=== PATIENT | male | born 1980 | race Caucasian/White ===

== ENCOUNTER → 2016-12-11 | Outpatient (CLI) | payer OTHER ==
[2016-12-11 20:02] LABS: Basophils # (A) 0.1 k/uL (0-0.2); Basophils % (A) 1 %; CH 30.1; CHCM 33.7; Eosinophils # (A) 0.3 k/uL (0-0.7); Eosinophils % (A) 3 %; HCT 45.4 % (39.0-53.0); HDW 2.49; HGB 14.8 gm/dL (13.0-17.5); Luc # (Auto) 0.13; Luc % (Auto) 1; Lymphocytes # (A) 3.2 k/uL (1.0-4.8); Lymphocytes % (A) 31 %; MCH 29.2 pg (25.0-35.0); MCHC 32.6 g/dL (31.0-37.0); MCV 89.6 fL (80.0-100.0); Mean Platelet Volume 7.6; Monocytes # (A) 0.6 k/uL (0-1.0); Monocytes % (A) 5 %; Neutrophils % (A) 59 %; RBC 5.06 m/uL (4.30-5.90); RDW 13.2 % (11.5-15.5); WBC 10.3 k/uL (3.8-10.6); WBC (Perox) 10.41
[2016-12-11 20:10] LABS: ALT 62 U/L (21-72); AST 52 U/L (17-59); Alkaline Phosphatase 68 U/L (38-126); Anion Gap 13 mmol/L; Blood Urea Nitrogen 11 mg/dL (9-20); Calcium 9.7 mg/dL (8.4-10.2); Carbon Dioxide 26 mmol/L (22-30); Chloride 103 mmol/L (98-107); Cholesterol 217 mg/dL (<200); Glucose 82 mg/dL (74-99); HDL Cholesterol 37 mg/dL (40-60); Non-African American GFR(MDRD) >60 (>60 ml/min/1.73 sqM); Potassium 4.2 mmol/L (3.5-5.1); Sodium 142 mmol/L (137-145); Total Bilirubin 0.7 mg/dL (0.2-1.3); Total Protein 7.7 g/dL (6.3-8.2); Triglycerides 166 mg/dL (<150)
== END | disposition home or self-care (01) ==
LOC: MMGSC 16:46
PROVIDERS: ATTEND Family Medicine
DX: Z00.00 Encounter for general adult medical examination without abnormal findings (principal); E03.9 Hypothyroidism, unspecified
CPT/HCPCS: 36415; 80053; 80061; 84439; 84443; 85025

== ENCOUNTER → 2017-01-29 | Outpatient (CLI) | payer OTHER | END | disposition home or self-care (01) | LOC: MMGSC 16:41 | PROVIDERS: ATTEND Family Medicine | DX: E03.9 Hypothyroidism, unspecified (principal) | CPT/HCPCS: 36415; 84439; 84443 ==

== ENCOUNTER → 2017-06-09 | Outpatient (CLI) | payer OTHER | LOC: MMGSC 16:55 | PROVIDERS: ATTEND Family Medicine | DX: E03.9 Hypothyroidism, unspecified (principal) | CPT/HCPCS: 36415; 84439; 84443 ==

== ENCOUNTER → 2018-01-25 | Outpatient (CLI) | payer OTHER ==
[2018-01-25 18:52] LABS: T4, Free (Free Thyroxine) 0.27 ng/dL (0.78-2.19)
== END | disposition home or self-care (01) ==
LOC: MMGSC 16:07
PROVIDERS: ATTEND Family Medicine
DX: E03.9 Hypothyroidism, unspecified (principal)
CPT/HCPCS: 36415; 84439; 84443; 84480

== ENCOUNTER → 2019-03-16 | Outpatient (CLI) | payer OTHER ==
--- NOTE | 2019-03-16 16:29 | XR ---
EXAMINATION TYPE: XR orbit complete bilateral DATE OF EXAM: 03/16/2019 COMPARISON: None HISTORY: MRI clearance V90, M 25.699 TECHNIQUE: Orbits are examined in 3 projections. FINDINGS: No radiopaque foreign bodies are in or about the orbits to contraindicate MRI. Paranasal si nuses and sella appear unremarkable. IMPRESSION: 1. No suspicious radiopaque foreign bodies in or about the orbits.
--- NOTE | 2019-03-17 08:52 | MR ---
EXAMINATION TYPE: MR knee LT wo con DATE OF EXAM: 03/16/2019 COMPARISON: None HISTORY: Pain in left knee TECHNIQUE: Multiplanar, multisequence imaging of the left knee is performed without IV contrast. FINDINGS: MEDIAL MENISCUS: Some increased signal present at the posterior ankle root may represent strain, ther e is some intrasubstance signal without definitive tear LATERAL MENISCUS: Abnormal signal present within the anterior horn of the lateral meniscus medially l ikely a posttraumatic complex tear CRUCIATE LIGAMENTS: Some increased signal along the anterior cruciate ligament may represent strain o r partial tear, posterior cruciate ligament intact COLLATERAL LIGAMENTS: The medial collateral ligament and lateral collateral ligament complex are inta ct and unremarkable. EXTENSOR MECHANISM: Visualized quadriceps and patellar tendons are intact. EFFUSION: There is a joint effusion POPLITEAL CYST: Small semimembranosus gastrocnemius cyst TRICOMPARTMENT SPACES: Maintained CARTILAGE: Thinning of the articular cartilage noted in the medial compartment BONE MARROW SIGNAL: Somewhat diffuse abnormal increased signal within the proximal tibia metaphysis m ay represent posttraumatic geode formation or ganglion cyst, there is reactive marrow signal change a lso present within the proximal tibia anteriorly which may represent bone contusion OTHER: There is some marginal spurring. Prepatellar soft tissue swelling noted anterior to the samson lar tendon may be related to contusion IMPRESSION: Posttraumatic changes to the anterior horn of the lateral meniscus consistent with complex tear and l ikely the anterior cruciate ligament shows strain or partial tear, proximal tibia changes as describe d with joint effusion
== END | disposition home or self-care (01) ==
LOC: RADMRIMAIN 15:51
PROVIDERS: ATTEND Orthopaedic Surgery
DX: M25.462 Effusion, left knee (principal); M25.562 Pain in left knee
CPT/HCPCS: 70200

== ENCOUNTER → 2019-04-11 | Outpatient (CLI) | payer OTHER ==
[2019-04-11 17:31] LABS: ALT 37 U/L (10-49); AST 29 U/L (14-35); Alkaline Phosphatase 93 U/L (41-126); Bilirubin, Conjugated <0.20 mg/dL (0.20-0.40); Globulin 2.5 g/dL (1.6-3.3); Total Bilirubin 0.3 mg/dL (0.2-1.2)
== END | disposition home or self-care (01) ==
LOC: LABWHC1 09:52
PROVIDERS: ATTEND Family Medicine
DX: E03.9 Hypothyroidism, unspecified (principal); R94.5 Abnormal results of liver function studies
CPT/HCPCS: 36415; 80076; 84439; 84443

== ENCOUNTER → 2019-04-11 | Outpatient (CLI) | payer OTHER ==
[2019-04-11 10:21] LABS: Basophils # (A) 0.1 k/uL (0-0.2); Basophils % (A) 1 %; Eosinophils # (A) 0.3 k/uL (0-0.7); Eosinophils % (A) 3 %; HCT 46.7 % (39.0-53.0); HGB 14.8 gm/dL (13.0-17.5); Lymphocytes # (A) 1.7 k/uL (1.0-4.8); Lymphocytes % (A) 16 %; MCH 28.1 pg (25.0-35.0); MCHC 31.6 g/dL (31.0-37.0); MCV 88.9 fL (80.0-100.0); Mean Platelet Volume 6.3; Monocytes # (A) 0.7 k/uL (0-1.0); Monocytes % (A) 7 %; Neutrophils # (A) 7.9 k/uL (1.3-7.7); Neutrophils % (A) 73 %; Platelet Count 281 k/uL (150-450); RBC 5.26 m/uL (4.30-5.90); RDW 13.1 % (11.5-15.5); WBC 10.8 k/uL (3.8-10.6)
[2019-04-11 10:40] LABS: Potassium 4.3 mmol/L (3.5-5.1)
== END | disposition home or self-care (01) ==
LOC: LABPAT 09:46
PROVIDERS: ATTEND Orthopaedic Surgery
DX: Z01.812 Encounter for preprocedural laboratory examination (principal); M23.92 Unspecified internal derangement of left knee
CPT/HCPCS: 80051; 85025

== ENCOUNTER → 2019-04-29 | Day surgery (SDC) | payer OTHER ==
[2019-04-26 09:42] VITALS: BMI 29.9
--- NOTE | 2019-04-28 11:23 | HP ---
HISTORY AND PHYSICAL CHIEF COMPLAINT: Left knee pain. 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 He notes increasing swelling, pain with stairs, kneeling, and flexion. He notes intermittent giving way. He has tried medications in addition to an injection with only partial temporary relief. He notes it does limit him. PAST MEDICAL HISTORY: Significant for depression and hypothyroidism. PAST SURGICAL HISTORY: Significant for left knee ACL reconstruction. CURRENT MEDICATIONS: Xanax. HE NOTES ALLERGIES TO: PENICILLIN. FAMILY HISTORY: Negative. SOCIAL HISTORY: Significant for 1 pack per day tobacco use and social alcohol use. REVIEW OF SYSTEMS: A 16-point review of systems otherwise reviewed and is noncontributory. On examination, the patient is approximately 5 foot 11, 228 pounds of mesomorphic habitus. HEENT: Exam is nonfocal. NECK: Supple. He has painless passive motion of the left hip. Straight leg raise is negative. Active motion left knee -12 to 100 degrees of flexion. He has a large effusion. He is tender about the medial joint line. Collaterals are stable, Devin's is 1+, Landy's elicits medial and lateral pain. His distal neurovascular appears intact in the left lower extremity. MRI report for the left knee shows increased signal involving the posterior horn of the medial meniscus in addition to the anterior horn of the lateral meniscus. There is increased signal involving the ACL reconstruction. IMPRESSION: 1. Internal derangement left knee with lateral meniscal tear and possible medial meniscal tear, possible medial femoral condyle chondral injury. 2. History of left knee ACL reconstruction. We will likely pursue sprain. RECOMMENDATIONS: I talked to the patient at length regarding his condition and treatment options. At this point, he is quite symptomatic, having pain and mechanical symptoms and opts to proceed with surgery. We will plan to proceed with arthroscopic evaluation with possible partial lateral meniscectomy/medial femoral chondrectomy/and possible ACL debridement. We will likely perform that as an outpatient procedure. Risks and benefits were discussed at length in layman's terms. MMODL / IJN: [id number] /
[~2019-04-29] MED LIST: DEXAMETHASONE SOD PHOSPHATE 10 MG/ML 1 ML VIAL IV ONE; EPINEPHrine (PF) 1 ML in SODIUM CHLORIDE 0.9% IRRIGATIO 3,000 ML IRRIGATION ONE; HYDROmorphone 0.5 MG/0.5 ML SYRINGE IVP PRN; KETOROLAC 30 MG/ML 1 ML VIAL IVP SCH; LACTATED RINGERS 1,000 ML IV SCH; LIDOCAINE 1% 20 ML VIAL (10MG/ML) FOR IV START INTRADERMA PRN; LIDOCAINE 1% INJ 10MG/ML (20 ML MDV) ONE; MEPERIDINE 50 MG/ML SYRINGE IVP ONE; METOCLOPRAMIDE 5 MG/ML 2 ML VIAL IVP PRN; MIDAZOLAM 2 MG/2 ML VIAL ONE; ONDANSETRON 4 MG/2 ML VIAL IVP ONE; ONDANSETRON 4 MG/2 ML VIAL IVP PRN; PROPOFOL 10 MG/ML 20 ML VIAL IV ONE; ceFAZolin IN SWFI 2 GM/20 ML SYRINGE IVP ONE; fentaNYL (PF) 50 MCG/ML 2 ML AMP ONE
[2019-04-29 08:55] VITALS: RESP 16; TEMP 98
[2019-04-29] MEDS: MEPERIDINE 50 MG/ML SYRINGE IVP ONE ×2 (08:59→09:14)
--- NOTE | 2019-04-29 09:07 | P.OP ---
Date of Procedure: 04/29/19 Preoperative Diagnosis: Left knee internal derangement Postoperative Diagnosis: Left knee anterior lateral meniscal tear/reactive synovitis/loose body Procedure(s) Performed: Left knee arthroscopic partial lateral meniscectomy/synovectomy of the medial, lateral, and patellofemoral compartments/loose body removal 1 x 1 cm Anesthesia: LOPEZ Surgeon: Ponce Stevens Estimated Blood Loss (ml): 10 Pathology: none sent Condition: stable Disposition: PACU Indications for Procedure: The patient's a 39-year-old male who presents with progressive left knee pain and mechanical symptoms despite conservative measures. He has a history of previous ACL reconstruction. A discussion of the risks and benefits of operative intervention versus continued conservative measures was made with the patient. He opted to proceed with surgery. Operative risks to include infection, neurovascular injury, development blood clots, possible incomplete resolution of symptoms, possible worsening symptoms and need for subsequent procedures was discussed. Informed consent was obtained. Operative Findings: As below Description of Procedure: The patient was brought to the operating room, and after induction of general anesthesia examined the left knee. Collaterals were stable, Devin was negative, and posterior drawer was negative. The left lower extremity was prepped and draped in a normal fashion. A superior lateral portal was made through a 3 mm skin incision superior and lateral to the patella. This was used for outflow. A lateral portal was made through a 5 mm vertical skin incision lateral to the patella tendon above the joint line. Diagnostic arthroscopy was performed. On inspection of the medial compartment, the posterior horn appeared to be intact. Significant reactive synovitis involving the anterior medial co mpartment was noted and was debrided with a motorized shaver.. On inspection of the notch, the anterior cruciate ligament graft grossly appeared to be intact. On inspection of the lateral compartment, a complex tear involving the anterior horn of the lateral meniscus in the white/red junction was noted. This was debrided back to stable base with a motorized shaver. A 1 x 1 cm bony loose body was noted in the anterolateral compartment. This was removed with a grasper. Significant reactive synovitis was also debrided with a motorized shaver in the anterolateral compartment.. On inspection of the patellofemoral articulation there was reactive synovitis debrided with a motorized shaver. The gutters were clear debris. The knee was then thoroughly irrigated. The portals were closed with Steri-Strips. A sterile dressing was applied in addition to a compression stocking. The patient was awoken from general anesthesia and transferred to recovery room in good condition. Blood loss was estimated at 10 mL. No complications were incurred.
[2019-04-29 09:49] VITALS: BP 143/84; PULSE 68
== END | disposition home or self-care (01) ==
LOC: OR 06:27
PROVIDERS: ATTEND Orthopaedic Surgery
DX: S83.282A Other tear of lateral meniscus, current injury, left knee, initial encounter (principal); X58.XXXA Exposure to other specified factors, initial encounter; M65.862 Other synovitis and tenosynovitis, left lower leg; E03.9 Hypothyroidism, unspecified; F32.9 Major depressive disorder, single episode, unspecified; Z87.891 Personal history of nicotine dependence; Z79.890 Hormone replacement therapy; Z79.899 Other long term (current) drug therapy; Z88.0 Allergy status to penicillin
CPT/HCPCS: 29881; 29876; J2250; J1100; J2175; J2405; J0171; J2001; J3010; J2704; J0690

== ENCOUNTER → 2019-09-21 | Day surgery (SDC) | payer OTHER ==
[2019-09-20 09:05] VITALS: BMI 32.1
[~2019-09-21] MED LIST changes: -EPINEPHrine (PF) 1 ML in SODIUM CHLORIDE 0.9% IRRIGATIO 3,000 ML IRRIGATION ONE; -HYDROmorphone 0.5 MG/0.5 ML SYRINGE IVP PRN; -KETOROLAC 30 MG/ML 1 ML VIAL IVP SCH; +KETOROLAC 30 MG/ML 1 ML VIAL ONE; -MEPERIDINE 50 MG/ML SYRINGE IVP ONE; -METOCLOPRAMIDE 5 MG/ML 2 ML VIAL IVP PRN; -ONDANSETRON 4 MG/2 ML VIAL IVP PRN; +SCOPOLAMINE 1.5MG/72HR PATCH TRANSDERM ONE; -ceFAZolin IN SWFI 2 GM/20 ML SYRINGE IVP ONE
--- NOTE | 2019-09-21 09:21 | HP ---
HISTORY AND PHYSICAL CHIEF COMPLAINT: Left knee pain. 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 He has tried medications in addition to a cortisone injection and lubrication injection. He notes persistent swelling and stiffness. He denies fevers or chills. PAST MEDICAL HISTORY: Significant for depression and hypothyroidism. PAST SURGICAL HISTORY: Significant for previous left knee ACL reconstruction and subsequent left knee arthroscopy. CURRENT MEDICATIONS: 1. Medrol dose pack. 2. [place]. 3. Xanax. He has allergies to PENICILLIN. FAMILY HISTORY: Negative. SOCIAL HISTORY: Significant for 1 pack per day tobacco use and daily alcohol use. 16 POINT REVIEW OF SYSTEMS: Otherwise reviewed and is negative for fevers or chills or other joint complaints. PHYSICAL EXAMINATION: On examination, the patient is approximately 5 foot 11, 228 pounds of endomorphic habitus. HEENT exam is nonfocal. Neck is supple. He has painless passive motion of his left hip. Straight leg raise is negative. Active motion left knee -12 to 105 degrees of flexion. He has a moderate effusion. There is no increased warmth or erythema. He is tender about the medial joint line. Collaterals are stable, Devin is negative, Landy's is equivocal. His distal neurovascular appears intact in the left lower extremity. Previous synovial fluid results for the left knee show 35,900 PMNs with no crystals. Serum uric acid was 7.5, C-reactive protein 2.2, and sedimentation rate was 33. IMPRESSION: 1. Left knee internal derangement/synovitis, possibly secondary to inflammatory arthritis versus infectious etiology. 2. Previous left knee arthroscopy with lateral compartment osteoarthrosis. RECOMMENDATIONS: I talked to the patient at length regarding his condition along with treatment options. At this point, he remains quite symptomatic despite conservative measures and opts to proceed with surgery. We will plan to proceed with arthroscopic lavage of the left knee at which point we will obtain Gram stain and cultures, along with repeat cell count. We will likely start the patient prophylactically after this on oral Keflex until culture results are available. MMODL / IJN: [id number] /
[2019-09-21 12:44] LABS: Glucose,Whole Blood 83 mg/dL (75-99)
[2019-09-21] MEDS: HYDROmorphone 0.5 MG/0.5 ML SYRINGE IVP PRN ×4 (14:19→14:37)
--- NOTE | 2019-09-21 14:21 | P.OP ---
Date of Procedure: 09/21/19 Preoperative Diagnosis: Left knee synovitis/effusion Postoperative Diagnosis: Same Procedure(s) Performed: Left knee arthroscopic lavage/synovectomy of the medial, lateral, and patellofemoral compartments Anesthesia: LOPEZ Surgeon: Ponce Stevens Estimated Blood Loss (ml): 10 Pathology: other (Gram stain, culture, cell count, fluid for crystals) Condition: stable Disposition: PACU Indications for Procedure: The patient's a 39-year-old male who presents with a several week history of increasing pain, swelling, and warmth in his left knee. He previously had undergone arthroscopy approximately 3-4 months ago. Previous aspiration showed significant inflammatory cells in his knee. A discussion of the risks and benefits of operative intervention was made with patient. He opted to proceed. Specific risks to include infection, neurovascular injury, and possible need for subsequent procedures was discussed. Informed consent was obtained. Operative Findings: As below Description of Procedure: The patient was brought to the operating room, and after induction of general anesthesia examined the left knee. Collaterals were stable, Devin was negative, and posterior drawer was negative. The left lower extremity was prepped and draped in a normal fashion. A superior lateral portal was made through a 3 mm skin incision superior and lateral to the patella. This was used for outflow. A moderate effusion was encountered. This fluid was sent for cell count, crystals, and Gram stain with culture. A lateral portal was made through a 5 mm vertical skin incision lateral to the patella tendon above the joint line. Diagnostic arthroscopy was performed. On inspection of the medial compartment, there was significant synovitis that was debrided with a motorized shaver. There were some loose chondral fragments floating in the joint space that was debrided with a motorized shaver. The medial meniscus was stable and intact. On inspection of the notch, the anterior cruciate ligament graft appeared to be intact. On inspection of the lateral compartment, there was significant synovitis debrided with a motorized shaver. The lateral meniscus was stable and intact. Grade 2-3 chondral changes were noted diffusely in the lateral compartment.. On inspection of the patellofemoral articulation, there was significant synovitis debrided with a motorized shaver. The articular surface appeared intact. The gutters were clear debris. The knee was then thoroughly irrigated with 11 L of fluid. The portals were closed with Steri- Strips. A sterile dressing was applied in addition to a compression stocking. The patient was awoken from general anesthesia and transferred to recovery room in good condition. Blood loss was estimated at 10 mL. No complications were incurred.
[2019-09-21 14:29] VITALS: TEMP 97
[2019-09-21 14:38] LABS: Color,BF Red
[2019-09-21 14:39] LABS: Appearance,BF Bloody; Nucleated Cells, Body Fluid 8000 /uL; RBC, Body Fluid 565500 /uL
[2019-09-21 14:44] LABS: Mononuclear WBC,Body Fluid 22 %; Polynuclear WBC,Body Fluid 78 %; Total Cells Counted,Body Fluid 100
[2019-09-21 15:03] VITALS: PULSE 69
[2019-09-21 15:23] VITALS: BP 134/85; RESP 18
== END | disposition home or self-care (01) ==
LOC: OR 11:26
PROVIDERS: ATTEND Orthopaedic Surgery
DX: M65.862 Other synovitis and tenosynovitis, left lower leg (principal); M17.12 Unilateral primary osteoarthritis, left knee; E03.9 Hypothyroidism, unspecified; F32.9 Major depressive disorder, single episode, unspecified; F17.210 Nicotine dependence, cigarettes, uncomplicated; Z88.0 Allergy status to penicillin; Z79.890 Hormone replacement therapy; Z79.899 Other long term (current) drug therapy; Z98.890 Other specified postprocedural states
CPT/HCPCS: 89060; 89050; 87070 ×2; 87205 ×2; 87075 ×2; 29876; J2250; J1100; J0690; J2405; J2001; J3010; J1885; J2704; J1170

== ENCOUNTER 2024-01-12 18:39 | Inpatient (IN) | payer BC, OTHER ==
--- NOTE | 2024-01-12 18:46 | ED ---
Extremity Problem HPI - General Source: patient, RN notes reviewed Mode of arrival: wheelchair Limitations: physical limitation <Bekah Alva - Last Filed: 01/12/24 18:45> - History of Present Illness MD Complaint: other (Ataxia) -: week(s) Radiation: none Severity scale (1-10): 6 Consistency: constant Improves with: nothing, immobilization Worsens with: weight bearing, walking Associated Symptoms: denies other symptoms <Suman Contreras - Last Filed: 01/17/24 20:46> - General Stated complaint: Back Pain Time Seen by Provider: 01/12/24 18:45 - History of Present Illness Initial comments: Patient is a 43-year-old male presenting to the ER with a chief complaint of bilateral leg pain. He states has been a ongoing problem for which he is undergoing outpatient testing. He states today he started to have leg "convulsions ". He states there is a tingling sensation in his bilateral legs. Denies any injury. Does have a history of back pain. Denies any fevers, history of IV drug use, saddle paresthesias, urinary or bowel incontinence. (Bekah Alva) This 43-year-old male to ER for evaluation of weakness leg pain difficulty with ambulation and shaking of his legs uncontrolled convulsions of his legs with spasm and difficulty with walking and ataxia. Symptoms for a few weeks now, patient has had prior history of arthritis and joint pain which was a couple years ago but no other significant symptoms and no numbness back pain, no fever. Patient does have headaches and did have a headache today (Suman Contreras) - Related Data Home Medications Medication Instructions Recorded Confirmed Thyroid,Pork [[place] Thyroid] 120 mg PO DAILY 04/26/19 01/13/24 ALPRAZolam [Xanax] 0.5 mg PO DAILY PRN 09/20/19 01/13/24 Levothyroxine Sodium [Synthroid] 25 mcg PO DAILY 01/13/24 01/13/24 Meloxicam [Mobic] 15 mg PO DAILY 01/13/24 01/13/24 Allergies Allergy/AdvReac Type Severity Reaction Status Date / Time Penicillins Allergy Rash/Hives Verified 01/13/24 07:40 Review of Systems ROS Other: All systems not noted in ROS Statement are negative. <Bekah Alva - Last Filed: 01/12/24 18:45> ROS Other: All systems not noted in ROS Statement are negative. <Suman Contreras - Last Filed: 01/17/24 20:46> ROS Statement: Those systems with pertinent positive or pertinent negative responses have been documented in the HPI. Past Medical History Past Medical History: Osteoarthritis (OA), Thyroid Disorder History of Any Multi-Drug Resistant Organisms: None Reported Past Surgical History: Orthopedic Surgery Additional Past Surgical History / Comment(s): REPAIR ACL LT KNEE Past Anesthesia/Blood Transfusion Reactions: No Reported Reaction Past Psychological History: Depression Past Alcohol Use History: Occasional Additional Past Alcohol Use History / Comment(s): QUIT SMOKING 04/10 Past Drug Use History: None Reported - Past Family History Mother Family Medical History: No Reported History <GunnertimiBekah - Last Filed: 01/12/24 18:45> General Exam <GunnertimiBekah - Last Filed: 01/12/24 18:45> General appearance: alert, in no apparent distress Head exam: Present: atraumatic, normocephalic, normal inspection Eye exam: Present: normal appearance, PERRL, EOMI. Absent: scleral icterus, conjunctival injection, periorbital swelling ENT exam: Present: normal exam, mucous membranes moist Neck exam: Present: normal inspection. Absent: tenderness, meningismus, lymphadenopathy Respiratory exam: Present: normal lung sounds bilaterally. Absent: respiratory distress, wheezes, rales, rhonchi, stridor Cardiovascular Exam: Present: regular rate, normal rhythm, normal heart sounds. Absent: systolic murmur, diastolic murmur, rubs, gallop, clicks GI/Abdominal exam: Present: soft, normal bowel sounds. Absent: distended, tenderness, guarding, rebound, rigid Extremities exam: Present: normal inspection, full ROM, normal capillary refill. Absent: tenderness, pedal edema, joint swelling, calf tenderness Back exam: Present: normal inspection Neurological exam: Present: alert, oriented X3, CN II-XII intact Psychiatric exam: Present: normal affect, normal mood Skin exam: Present: warm, dry, intact, normal color. Absent: rash <Suman Contreras - Last Filed: 01/17/24 20:46> - General Exam Comments Initial Comments: Visual Physical Exam Vital signs reviewed General: Well-appearing, nontoxic, no acute distress. Head: Normocephalic, atraumatic Eyes: PERRLA, EOMI ENT: Airway patent Chest: Nonlabored breathing Skin: No visual rash, normal skin tone Neuro: Alert and oriented 3 Musculoskeletal: No gross abnormalities (Bekah Alva) Course <Suman Contreras - Last Filed: 01/17/24 20:46> Vital Signs 01/12/24 01/12/24 01/12/24 18:43 21:05 23:33 Temperature 98.3 F 98.2 F 97.7 F Pulse Rate 88 60 62 Respiratory 16 18 17 Rate Blood Pressure 169/97 123/81 125/76 O2 Sat by Pulse 100 98 95 Oximetry 01/13/24 01/13/24 01/13/24 04:24 09:33 12:00 Temperature 97.7 F 98.3 F Pulse Rate 63 67 79 Respiratory 16 18 18 Rate Blood Pressure 123/73 122/79 118/85 O2 Sat by Pulse 97 99 98 Oximetry 01/13/24 01/13/24 16:00 20:00 Temperature Pulse Rate 85 76 Respiratory 18 16 Rate Blood Pressure 125/79 115/76 O2 Sat by Pulse 99 99 Oximetry - Reevaluation(s) Reevaluation #1: 01/13/24 01:08 Medical records reviewed (Suman Contreras) Reevaluation #2: 01/13/24 01:08 Patient symptoms unchanged (Suman Contreras) Reevaluation #3: 01/13/24 01:08 Patient informed of results and questions answered (Suman Contreras) Reevaluation #4: Was pt. sent in by a medical professional or institution (, PA, GEOCHEMIST, urgent care, hospital, or [facility]...) When possible be specific @ -no Did you speak to anyone other than the patient for history (EMS, parent, family, police, friend...)? What history was obtained from this source @ -no Did you review nursing and triage notes (agree or disagree)? Why? @ -agree Are old charts reviewed (outside hosp., previous admission, EMS record, old EKG, old radiological studies, urgent care reports/EKG's, [facility] records)? Report findings @ -yes Differential Diagnosis (chest pain, altered mental status, abdominal pain women, abdominal pain men, vaginal bleeding, weakness, fever, dyspnea, syncope, headache, dizziness, GI bleed, back pain, seizure, CVA, palpatations, mental health, musculoskeletal)? @ -prior EKG interpreted by me (3pts min.). @ -no X-rays interpreted by me (1pt min.). @ -no CT interpreted by me (1pt min.). @ -yes negative for acute disease U/S interpreted by me (1pt. min.). @ -no What testing was considered but not performed or refused? (CT, X-rays, U/S, labs)? Why? @ -none What meds were considered but not given or refused? Why? @ -none Did you discuss the management of the patient with other professionals (professionals i.e. , PA, GEOCHEMIST, lab, RT, psych nurse, adoption social worker, carpet sewer, teacher, chief quality officer, home health care case manager)? Give summary @ -no Was smoking cessation discussed for >3mins.? @ -no Was critical care preformed (if so, how long)? @ -no Were there social determinants of health that impacted care today? How? (Homelessness, low income, unemployed, alcoholism, drug addiction, transportation, low edu. Level, literacy, decrease access to med. care, residential, rehab)? @ -none Was there de-escalation of care discussed even if they declined (Discuss DNR or withdrawal of care, Hospice)? DNR status @ -no What co-morbidities impacted this encounter? (DM, HTN, Smoking, COPD, CAD, Cancer, CVA, ARF, Chemo, Hep., AIDS, mental health diagnosis, sleep apnea, morbid obesity)? @ -none Was patient admitted / discharged? Hospital course, mention meds given and route, prescriptions, significant lab abnormalities, going to OR and other pertinent info. @ - 43 male to ER for evaluation patient will be admitted for ataxia, difficulty with ambulation and see neurology Admitted Undiagnosed new problem with uncertain prognosis? @ -no Drug Therapy requiring intensive monitoring for toxicity (Heparin, Nitro, Insulin, Cardizem)? @ -no Were any procedures done? @ -no Diagnosis/symptom? @ -Bilateral lower extremity weakness and ataxia Acute, or Chronic, or Acute on Chronic? @ -Acute Uncomplicated (without systemic symptoms) or Complicated (systemic symptoms)? @ -Complicated Side effects of treatment? @ -no Exacerbation, Progression, or Severe Exacerbation? @ -exacerbation Poses a threat to life or bodily function? How? (Chest pain, [place], [place], pneumonia, PE, COPD, DKA, ARF, appy, cholecystitis, CVA, Diverticulitis, Homicidal, Suicidal, threat to staff... and all critical care pts) @ -yes with significant neurological findings (Suman Contreras) Reevaluation #5: Differential Weakness: Hypoglycemia, shock, sepsis, hyponatremia, anemia, infection, [place], ETOH, adverse medicine reaction, overdose, stroke, this is not meant to be an all-inclusive list. (Suman Contreras) - Consultations Consultation #1: Spoke with sound physicians who agreed to admit this patient (Suman Contreras) Medical Decision Making <Bekah Alva - Last Filed: 01/12/24 18:45> - Lab Data Result diagrams: 01/17/24 06:24 01/17/24 06:24 - EKG Data -: EKG Interpreted by Me (EKG is sinus bradycardia 53 WI 183 QRS 93 QTc 428) - Radiology Data Radiology results: report reviewed (CT brain and CT lumbar spine are negative for acute disease), image reviewed <Suman Contreras - Last Filed: 01/17/24 20:46> - Medical Decision Making I performed the quick note portion of this chart. Electronically signed by Bekah Alva PA-C (Bekah Alva) 3 male to ER for evaluation patient will be admitted for ataxia, difficulty with ambulation and see neurology (Suman Contreras) - Lab Data Lab Results 01/12/24 01/12/24 01/12/24 Range/Units 18:57 18:57 22:45 WBC 9.4 (3.8-10.6) k/uL RBC 4.90 (4.30-5.90) m/uL Hgb 13.9 (13.0-17.5) gm/dL Hct 41.8 (39.0-53.0) % MCV 85.3 (80.0-100.0) fL MCH 28.4 (25.0-35.0) pg MCHC 33.3 (31.0-37.0) g/dL RDW 13.2 (11.5-15.5) % Plt Count 278 (150-450) k/uL MPV 6.7 ESR (0-15) mm/Hr Sodium 137 (137-145) mmol/L Potassium 4.4 (3.5-5.1) mmol/L Chloride 104 (98-107) mmol/L Carbon Dioxide 26 (22-30) mmol/L Anion Gap 7 mmol/L BUN 18 (9-20) mg/dL Creatinine 0.71 (0.66-1.25) mg/dL Est GFR (CKD-EPI)AfAm >90 (>60 ml/min/1.73 sqM) Est GFR (CKD-EPI)NonAf >90 (>60 ml/min/1.73 sqM) Glucose 114 H (74-99) mg/dL Plasma Lactic Acid [place] 0.8 (0.7-2.0) mmol/L Calcium 9.0 (8.4-10.2) mg/dL Phosphorus (2.5-4.5) mg/dL Magnesium 2.2 (1.6-2.3) mg/dL Total Bilirubin 0.6 (0.2-1.3) mg/dL AST 47 (17-59) U/L ALT 29 (4-49) U/L Alkaline Phosphatase 82 (38-126) U/L Creatine Kinase (55-170) U/L Troponin I (0.000-0.034) ng/mL C-Reactive Protein (0.00-0.80) mg/dL Total Protein 8.0 (6.3-8.2) g/dL Albumin 4.3 (3.5-5.0) g/dL Vitamin B12 (200.0-944.0) pg/mL RBC Folate (280 - 791) ng/mL TSH (0.465-4.680) mIU/L Lyme Screen IgG & IgM (Negative) Lyme Disease IgG/IgM 01/12/24 01/12/24 01/13/24 Range/Units 22:45 22:45 01:50 WBC (3.8-10.6) k/uL RBC (4.30-5.90) m/uL Hgb (13.0-17.5) gm/dL Hct (39.0-53.0) % MCV (80.0-100.0) fL MCH (25.0-35.0) pg MCHC (31.0-37.0) g/dL RDW (11.5-15.5) % Plt Count (150-450) k/uL MPV ESR (0-15) mm/Hr Sodium (137-145) mmol/L Potassium (3.5-5.1) mmol/L Chloride (98-107) mmol/L Carbon Dioxide (22-30) mmol/L Anion Gap mmol/L BUN (9-20) mg/dL Creatinine (0.66-1.25) mg/dL Est GFR (CKD-EPI)AfAm (>60 ml/min/1.73 sqM) Est GFR (CKD-EPI)NonAf (>60 ml/min/1.73 sqM) Glucose (74-99) mg/dL Plasma Lactic Acid [place] (0.7-2.0) mmol/L Calcium (8.4-10.2) mg/dL Phosphorus 4.7 H (2.5-4.5) mg/dL Magnesium 2.3 (1.6-2.3) mg/dL Total Bilirubin (0.2-1.3) mg/dL AST (17-59) U/L ALT (4-49) U/L Alkaline Phosphatase (38-126) U/L Creatine Kinase 123 (55-170) U/L Troponin I <0.012 (0.000-0.034) ng/mL C-Reactive Protein (0.00-0.80) mg/dL Total Protein (6.3-8.2) g/dL Albumin (3.5-5.0) g/dL Vitamin B12 592.0 (200.0-944.0) pg/mL RBC Folate (280 - 791) ng/mL TSH 0.305 L (0.465-4.680) mIU/L Lyme Screen IgG & IgM (Negative) Lyme Disease IgG/IgM 01/13/24 01/13/24 01/13/24 Range/Units 12:05 12:05 12:05 WBC (3.8-10.6) k/uL RBC (4.30-5.90) m/uL Hgb (13.0-17.5) gm/dL Hct (39.0-53.0) % MCV (80.0-100.0) fL MCH (25.0-35.0) pg MCHC (31.0-37.0) g/dL RDW (11.5-15.5) % Plt Count (150-450) k/uL MPV ESR 36 H (0-15) mm/Hr Sodium (137-145) mmol/L Potassium (3.5-5.1) mmol/L Chloride (98-107) mmol/L Carbon Dioxide (22-30) mmol/L Anion Gap mmol/L BUN (9-20) mg/dL Creatinine (0.66-1.25) mg/dL Est GFR (CKD-EPI)AfAm (>60 ml/min/1.73 sqM) Est GFR (CKD-EPI)NonAf (>60 ml/min/1.73 sqM) Glucose (74-99) mg/dL Plasma Lactic Acid [place] (0.7-2.0) mmol/L Calcium (8.4-10.2) mg/dL Phosphorus (2.5-4.5) mg/dL Magnesium (1.6-2.3) mg/dL Total Bilirubin (0.2-1.3) mg/dL AST (17-59) U/L ALT (4-49) U/L Alkaline Phosphatase (38-126) U/L Creatine Kinase (55-170) U/L Troponin I (0.000-0.034) ng/mL C-Reactive Protein (0.00-0.80) mg/dL Total Protein (6.3-8.2) g/dL Albumin (3.5-5.0) g/dL Vitamin B12 (200.0-944.0) pg/mL RBC Folate 560 (280 - 791) ng/mL TSH (0.465-4.680) mIU/L Lyme Screen IgG & IgM Negative (Negative) Lyme Disease IgG/IgM .142 01/13/24 01/14/24 01/14/24 Range/Units 12:05 05:47 05:47 WBC 8.6 (3.8-10.6) k/uL RBC 4.75 (4.30-5.90) m/uL Hgb 13.5 (13.0-17.5) gm/dL Hct 40.9 (39.0-53.0) % MCV 86.0 (80.0-100.0) fL MCH 28.5 (25.0-35.0) pg MCHC 33.1 (31.0-37.0) g/dL RDW 13.4 (11.5-15.5) % Plt Count 243 (150-450) k/uL MPV 7.1 ESR (0-15) mm/Hr Sodium 141 (137-145) mmol/L Potassium 4.6 (3.5-5.1) mmol/L Chloride 108 H (98-107) mmol/L Carbon Dioxide 27 (22-30) mmol/L Anion Gap 6 mmol/L BUN 11 (9-20) mg/dL Creatinine 0.71 (0.66-1.25) mg/dL Est GFR (CKD-EPI)AfAm >90 (>60 ml/min/1.73 sqM) Est GFR (CKD-EPI)NonAf >90 (>60 ml/min/1.73 sqM) Glucose 100 H (74-99) mg/dL Plasma Lactic Acid [place] (0.7-2.0) mmol/L Calcium 9.3 (8.4-10.2) mg/dL Phosphorus (2.5-4.5) mg/dL Magnesium (1.6-2.3) mg/dL Total Bilirubin (0.2-1.3) mg/dL AST (17-59) U/L ALT (4-49) U/L Alkaline Phosphatase (38-126) U/L Creatine Kinase (55-170) U/L Troponin I (0.000-0.034) ng/mL C-Reactive Protein 1.90 H (0.00-0.80) mg/dL Total Protein (6.3-8.2) g/dL Albumin (3.5-5.0) g/dL Vitamin B12 (200.0-944.0) pg/mL RBC Folate (280 - 791) ng/mL TSH (0.465-4.680) mIU/L Lyme Screen IgG & IgM (Negative) Lyme Disease IgG/IgM Disposition <Bekah Alva - Last Filed: 01/12/24 18:45> Is patient prescribed a controlled substance at d/c from ED?: No Time of Disposition: 01:00 <Suman Contreras - Last Filed: 01/17/24 20:46> Clinical Impression: Leg weakness, Ataxia, Back pain, Peripheral neuropathy, Neuralgia Disposition: ADMITTED IP TO THIS HOSP Condition: Fair
[2024-01-12 19:14] LABS: HCT 41.8 % (39.0-53.0); HGB 13.9 gm/dL (13.0-17.5); MCH 28.4 pg (25.0-35.0); MCHC 33.3 g/dL (31.0-37.0); MCV 85.3 fL (80.0-100.0); Mean Platelet Volume 6.7; Platelet Count 278 k/uL (150-450); RDW 13.2 % (11.5-15.5); WBC 9.4 k/uL (3.8-10.6)
[2024-01-12 19:31] LABS: ALT 29 U/L (4-49); AST 47 U/L (17-59); African American GFR (CKD) >90 (>60 ml/min/1.73 sqM); Albumin 4.3 g/dL (3.5-5.0); Alkaline Phosphatase 82 U/L (38-126); Anion Gap 7 mmol/L; Blood Urea Nitrogen 18 mg/dL (9-20); Carbon Dioxide 26 mmol/L (22-30); Chloride 104 mmol/L (98-107); Glucose 114 mg/dL (74-99); Magnesium 2.2 mg/dL (1.6-2.3); Non-African American GFR(CKD) >90 (>60 ml/min/1.73 sqM); Sodium 137 mmol/L (137-145); Total Bilirubin 0.6 mg/dL (0.2-1.3)
[2024-01-12 19:43] LABS: Potassium 4.4 mmol/L (3.5-5.1)
--- NOTE | 2024-01-12 22:47 | CT ---
EXAMINATION TYPE: CT brain gutierrezine wo con DATE OF EXAM: 01/12/2024 COMPARISON: NONE HISTORY: c/o weakness to legs. tremors to legs difficulty walking . no loss of bowel or bladder. no i njury CT DLP: 1540.1 mGycm. Automated Exposure Control for Dose Reduction was Utilized. TECHNIQUE: CT scan of the head and cervical spine are performed without contrast. FINDINGS: There is no acute intracranial hemorrhage, mass effect, or midline shift identified. The ventricles and sulci are within normal limits in size. Segura-white matter differentiation is maintai dandre. The calvarium is intact. The globes are intact and the visualized sinuses are clear. Cervical spine is visualized in its entirety from C1 through upper thoracic levels and demonstrates s atisfactory alignment without evidence of acute fracture or dislocation. Prevertebral soft tissue ap pears within normal limits. The C1-C2 articulation is unremarkable. Vertebral bodies and disc space heights are maintained. Spinal canal is grossly preserved. Lung apices are clear without pneumothora x. Thyroid gland is within normal limits. IMPRESSION: 1. There is no acute fracture or dislocation evident in the cervical spine. 2. No acute intracranial hemorrhage or midline shift is seen.
--- NOTE | 2024-01-12 22:54 | CT ---
EXAMINATION TYPE: CT lumbar spine wo con DATE OF EXAM: 01/12/2024 10:38 PM COMPARISON: None. HISTORY: c/o weakness to legs. tremors to legs difficulty walking . no loss of bowel or bladder. no i njury CT DLP: 2728.5 mGycm Automated exposure control for dose reduction was used. Unenhanced CT of the lumbar spine was performed. Bone and soft tissue window settings are submitted as well as coronal and sagittal reconstructions. There are 5 lumbar type vertebra. Lumbar spine shows satisfactory alignment without evidence of acute fracture or dislocation. Vertebral body heights and disc space heights are preserved. Mild multileve l anterior and lateral spurring is seen. Review of axial images show T12-L1 through L2-L3 levels to appear within normal limits. Axial images at L3-L4 level show mild/moderate broad-based disc bulge mildly effacing anterior thecal sac along with mild to moderate facet arthropathy bilaterally effacing posterior lateral thecal sac. Axial images at L4-L5 level show mild to moderate facet arthropathy and ligamentum flavum hypertrophy . There is broad-based posterior disc protrusion effacing anterior thecal sac. Spinal canal effacemen t is seen on axial image 63. There is likely mild bilateral neural foraminal narrowing. Axial images at L5-S1 level show mild facet arthropathy bilaterally. Paraspinal muscle bulk is mainta ined. IMPRESSION: No acute findings are evident. MRI noted more sensitive to evaluate for subtle disc herni ations and neural foraminal narrowing.
[2024-01-12 23:19] LABS: Magnesium 2.3 mg/dL (1.6-2.3); Phosphorus 4.7 mg/dL (2.5-4.5)
[2024-01-12] MEDS: SODIUM CHLORIDE 0.9% 1,000 ML IV STA (23:27)
[2024-01-13] MEDS ORDERED: MORPHINE SULFATE 4 MG/ML SYRINGE IV PRN (03:09)
[2024-01-13] MEDS ORDERED: ONDANSETRON 4 MG/2 ML VIAL IVP PRN (03:09)
[2024-01-13] MEDS ORDERED: NALOXONE 0.4 MG/ML 1 ML VIAL IV PRN (03:09)
[2024-01-13] MEDS: SODIUM CHLORIDE 0.9% 1,000 ML IV SCH (04:22)
--- NOTE | 2024-01-13 06:10 | P.HPIM ---
History of Present Illness H&P Date: 01/13/24 Chief Complaint: Difficulty ambulating 43-year-old male with hypothyroid Patient coming in for evaluation of lower extremity weakness. He reports 6 months history of occasional neck and back pain and over the past 2 months he started noticing significant deterioration and his lower extremity coordination with most recently over the past couple weeks facing difficulties climbing up and down ladders he works as an journeyman apprentice electricians and he has been concerned about his wellbeing he denies any falls or injuries denies any fevers or chills. He is voicing concerns regarding Lyme disease. 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 Patient denies any recent viral illnesses denies any similar history in the past he denies any urinary incontinence or retention denies any saddle numbness or tingling he does report occasional episodes of tingling in his bilateral feet In the exam room he is trying to demonstrate to me which positions leading to feel left lower extremity weakness is kind of with any mobility when he tries to stretch his legs and walk he will feel imbalanced. Otherwise he has no trouble getting up and sitting on a chair. He denies any other focal neurodeficits He reports that he is was scheduled to to perform some test and see specialists early January but he felt like he could not wait that long ` review of systems Pertinent positives as noted in HPI. All other systems were reviewed and are negative on exam Constitutional: No acute distress, conversant, pleasant Eyes: Anicteric sclerae, moist conjunctiva, Pupils equal round reactive to light ENMT: NC/AT Oropharynx clear, no erythema, or exudates Neck: Supple, no masses, or JVD No carotid bruits No thyromegaly Lungs: Clear to auscultation Clear to percussion Normal respiratory effort, no accessory muscle use Cardiovascular: Heart regular in rate and rhythm, No murmurs, gallops, or rubs No peripheral edema Abdominal: Soft Nontender, no guarding, rebound or rigidity Abdomen moving with respiration Normoactive bowel sounds No hepatomegaly, No splenomegaly Extremities: No digital cyanosis No clubbing Pedal pulses intact and symmetrical Radial pulses intact and symmetrical No calf tenderness Psychiatric: Alert and oriented to person, place and time Appropriate affect fair judgement Neuro Muscles Strength 5/5 in all 4 extremities Sensation to light touch grossly present throughout Cranial nerves II-XII grossly intact Past Medical History Past Medical History: Osteoarthritis (OA), Thyroid Disorder History of Any Multi-Drug Resistant Organisms: None Reported Past Surgical History: Orthopedic Surgery Additional Past Surgical History / Comment(s): REPAIR ACL LT KNEE Past Anesthesia/Blood Transfusion Reactions: No Reported Reaction Past Psychological History: Depression Past Alcohol Use History: Occasional Additional Past Alcohol Use History / Comment(s): QUIT SMOKING 04/10 Past Drug Use History: None Reported - Past Family History Mother Family Medical History: No Reported History Medications and Allergies Home Medications Medication Instructions Recorded Confirmed Type Thyroid,Pork [[place] Thyroid] 120 mg PO DAILY 04/26/19 09/20/19 History ALPRAZolam [Xanax] 0.5 mg PO DAILY PRN 09/20/19 09/20/19 History HYDROcodone/APAP 7.5-325MG [[place] 1 tab PO BID 09/20/19 09/20/19 History 7.5-325] methylPREDNISolone Dose Pack 4 mg PO DIRECTED 09/20/19 09/20/19 History [Medrol Dose Pack] Allergies Allergy/AdvReac Type Severity Reaction Status Date / Time Penicillins Allergy Rash/Hives Verified 09/21/19 12:08 Physical Exam Vitals: Vital Signs Temp Pulse Resp BP Pulse Ox 01/12/24 23:33 97.7 F 62 17 125/76 95 01/12/24 21:05 98.2 F 60 18 123/81 98 01/12/24 18:43 98.3 F 88 16 169/97 100 Intake and Output 01/12/24 01/12/24 01/13/24 14:59 22:59 06:59 Other: Weight 89.811 kg Results CBC & Chem 7: 01/12/24 18:57 01/12/24 18:57 Labs: Abnormal Lab Results - Last 24 Hours (Table) 01/12/24 01/12/24 Range/Units 18:57 22:45 Glucose 114 H (74-99) mg/dL Phosphorus 4.7 H (2.5-4.5) mg/dL TSH 0.305 L (0.465-4.680) mIU/L Assessment and Plan Assessment: 43-year-old male with hypothyroidism coming in for evaluation of progressive bilateral lower extremity weakness (been going on for few months and got worse over the past week or 2 denies any injuries or discussed the case with ED doctor and accepted the admission for difficulty climbing ladders due to lower extremity weakness for neurology evaluation with anticipated length of stay less than 2 midnights Lower extremity weakness with difficulty climbing ladders Neuro exam nonfocal CT of the lumbar spine no acute pathology Consider MRI of the lumbar spine await neurology input CT of the brain and cervical spine no acute intracranial pathology Check vitamin B12 level Fall precautions PT evaluation Chronic conditions Hypothyroid Resume home dose of thyroid [place] Full code DVT prophylaxis mechanical Blood work overall unremarkable white count 9.4 hemoglobin 13.9 Sodium 137 potassium 4.4 BUN 18 creatinine 0.7 Check Lyme antibody IgG/IgM
[2024-01-13] MEDS: THYROID, PORK 30 MG TAB PO SCH (06:48)
[2024-01-13] MEDS: LEVOTHYROXINE 25 MCG TAB PO SCH (09:31)
[2024-01-13] MEDS ORDERED: ACETAMINOPHEN TAB 325 MG TAB PO PRN (11:39)
[2024-01-13] MEDS ORDERED: HYDROcodone/APAP 5-325MG 1 EACH TAB PO PRN (11:39)
--- NOTE | 2024-01-13 11:39 | P.PN ---
Subjective Progress Note Date: 01/13/24 Patient is a 43-year-old male with osteoarthritis and hypothyroidism who presented to the emergency department with complaints of progressive lower extremity weakness with significant back pain. On arrival to the ER his vital signs are within normal limits. Initial laboratory analysis was unremarkable. Patient underwent CT head and cervical spine which demonstrated no acute fracture or dislocation with vertebral bodies and disc heights maintained. He underwent lumbar spine CT which showed an L3-4 disc bulge with mild effacement of the anterior thecal sac, L4-5 broad-based disc protrusion effacing the anterior sac. He was admitted for possible spinal cord compression. Patient seen and examined at bedside. He reports that over the summer he was having neck pain. 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 He has noted since that progressive lower extremity weakness. Yesterday he could not really sense his legs at all when he was trying to work on his roof. He then had twitching of his legs persistently for 15 to 20 minutes which is unusual. That scared him and he therefore presented to the emergency department. Vital signs reviewed General: Nontoxic, no distress, appears at stated age Cardiovascular: S1S2 reg, no murmur Lungs: CTA bilateral, no rhonchi, no rales, no accessory muscle use Abdominal: Soft, nontender to palpation, no guarding Ext: No gross muscle atrophy, no edema b/l lower extremities, no contractures Neuro: CN II-XI grossly intact, muscle strength 5 out of 5 with dorsi and plantarflexion at the ankle, 4 out of 5 with lifting leg off of bed bilaterally, light touch intact bilateral lower extremities. Gait reviewed and he does have a wide-based shuffling gait. Psych: Alert, oriented, appropriate affect Assessment/Plan: Lumbar pain with bilateral lower extremity weakness and ataxia -Concerns for possible symptomatic lumbar disc disease versus B12 deficiency versus other -Await orthopedic spine and neurology evaluations -Check B12 and thiamine levels -TSH is slightly suppressed at 0.305, CK normal at 123 -Check MRI lumbar spine -Continue with morphine 4 mg IV every 4 hours as needed for severe pain -Check ESR and CRP Hypothyroidism -Continue home [place] Thyroid 120 mg daily and Synthroid 25 mg daily Imaging: None new Data Review: None new DVT prophylaxis: Early ambulation Anticipated discharge date: Pending Clinical Coure Anticipated discharge place: Home This dictation was prepared using [employer] voice recognition software. Though every attempt is made to correct errors during dictation some may still exist. Objective - Vital Signs Vital signs: Vital Signs Temp 98.3 F 01/13/24 09:33 Pulse 67 01/13/24 09:33 Resp 18 01/13/24 09:33 BP 122/79 01/13/24 09:33 Pulse Ox 99 01/13/24 09:33 FiO2 Intake & Output 01/12/24 01/13/24 01/13/24 18:59 06:59 18:59 Weight 89.811 kg - Labs CBC & Chem 7: 01/12/24 18:57 01/12/24 18:57 Labs: Abnormal Lab Results - Last 24 Hours (Table) 01/12/24 01/12/24 Range/Units 18:57 22:45 Glucose 114 H (74-99) mg/dL Phosphorus 4.7 H (2.5-4.5) mg/dL TSH 0.305 L (0.465-4.680) mIU/L
--- NOTE | 2024-01-13 15:53 | P.CNOR ---
History of Present Illness - [facility] Consult date: 01/13/24 Requesting physician: Suman Contreras Consult reason: other (BL LE weakness) History of present illness: Patient is a 43-year-old male who presented to the emergency department [facility] this morning due to increasing lower extremity weakness. Patient says this problem has been going on for several months. 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 He states that alcohol seems to exacerbate his symptoms. Patient does note worsening of the symptoms when he is going down stairs or ladders. Patient states when he is resting the symptoms go away. Patient also mentions these symptoms have appeared to be getting more prevalent over the past couple months. Patient notes sometimes he does fall. Patient also reports some loss in memory and mental fogginess since these symptoms have worsening over the past couple months. Patient says he did see a marketing analyst and rheumatoid arthritis was ruled out. Patient says he has had a previous left total knee arthroplasty performed. Patient denies any significant back pain. Patient denies any saddle anesthesia/loss of bowel or bladder control. Patient notes when he walks he does feel like he hasn't been control of his legs and his legs will give out on him. Patient denies chest pain, fever, shortness of breath, nausea, vomiting, change in vision, loss of bowel/bladder control. Past Medical History Past Medical History: Osteoarthritis (OA), Thyroid Disorder History of Any Multi-Drug Resistant Organisms: None Reported Past Surgical History: Orthopedic Surgery Additional Past Surgical History / Comment(s): REPAIR ACL LT KNEE Past Anesthesia/Blood Transfusion Reactions: No Reported Reaction Past Psychological History: Depression Past Alcohol Use History: Occasional Additional Past Alcohol Use History / Comment(s): QUIT SMOKING 04/10 Past Drug Use History: None Reported - Past Family History Mother Family Medical History: No Reported History Medications and Allergies Home Medications Medication Instructions Recorded Confirmed Type Thyroid,Pork [[place] Thyroid] 120 mg PO DAILY 04/26/19 01/13/24 History ALPRAZolam [Xanax] 0.5 mg PO DAILY PRN 09/20/19 01/13/24 History Levothyroxine Sodium [Synthroid] 25 mcg PO DAILY 01/13/24 01/13/24 History Meloxicam [Mobic] 15 mg PO DAILY 01/13/24 01/13/24 History Allergies Allergy/AdvReac Type Severity Reaction Status Date / Time Penicillins Allergy Rash/Hives Verified 01/13/24 07:40 Physical Examination Inspection: Negative for any open fractures, significant erythema /ecchymosis/open wounds. Sensation: Equal, symmetric, bilaterally intact throughout the upper and lower extremities on exam. Palpation: Nontender to palpation throughout exam Range of motion: Full range of motion throughout bilateral upper and lower extremities on exam Motor: 5/5 in all major motor groups in bilateral upper and lower extremity is on exam Special tests: Negative Homans bilaterally. Negative Janie bilaterally. Negative clonus bilaterally. Neurovascular: Radial pulses intact, 2+ bilaterally. Cap refill under 3 seconds in digits of upper extremities. Results - Labs Labs: Abnormal Lab Results - Last 24 Hours (Table) 01/12/24 01/12/24 Range/Units 18:57 22:45 Glucose 114 H (74-99) mg/dL Phosphorus 4.7 H (2.5-4.5) mg/dL TSH 0.305 L (0.465-4.680) mIU/L H & H 01/12/24 Range/Units 18:57 Hgb 13.9 (13.0-17.5) gm/dL Hct 41.8 (39.0-53.0) % Result Diagrams: 01/12/24 18:57 01/12/24 18:57 - Diagnostic results CT scan - cervical: report reviewed, image reviewed (CT of the cervical spine is negative for any listhesis. Negative for any fractures. Vertebra appear to be well aligned.) CT Scan - lumbar: report reviewed, image reviewed (Computed tomography scan of lumbar spine does show some degenerative disc disease in the mid lumbar and lower lumbar spine. There is some mild neuroforaminal stenosis. Negative for any fractures or spondylolisthesis.) Assessment and Plan Assessment: 1. Ataxia; bilateral lower extremity radiculopathy Plan: 1. Ataxia; bilateral lower extremity radiculopathy - computed tomography scan of the cervical and lumbar spine has been reviewed. CT of cervical spine is negative for any fractures/spondylolisthesis. Vertebra appear to Be well aligned at this time. Negative for any significant degenerative disc disease. Lumbar spine CT does reveal some mild neuroforaminal stenosis at several levels as well as degenerative disc disease. Negative for any fractures/spondylolisthesis. We will await results from MRI before proceeding with any potential intervention. Recommend conservative measures at this time with PT/OT, pain medication. Recommend other specialty recommendations. We will continue to follow patient during stay in hospital. 2. Appreciate medical and neurology management 3. Pain management - Camilla; Tylenol 4. DVT prophylaxis - mechanical 5. GI prophylaxis - Dulcolax 6. PT/OT - weightbearing as tolerated with walker as needed and assistance 7. Appreciate consult Time with Patient: Less than 30
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
[2024-01-14 06:08] LABS: HCT 40.9 % (39.0-53.0); HGB 13.5 gm/dL (13.0-17.5); MCH 28.5 pg (25.0-35.0); MCHC 33.1 g/dL (31.0-37.0); Mean Platelet Volume 7.1; Platelet Count 243 k/uL (150-450); RBC 4.75 m/uL (4.30-5.90); RDW 13.4 % (11.5-15.5); WBC 8.6 k/uL (3.8-10.6)
[2024-01-14 06:20] LABS: African American GFR (CKD) >90 (>60 ml/min/1.73 sqM); Anion Gap 6 mmol/L; Blood Urea Nitrogen 11 mg/dL (9-20); Calcium 9.3 mg/dL (8.4-10.2); Carbon Dioxide 27 mmol/L (22-30); Chloride 108 mmol/L (98-107); Glucose 100 mg/dL (74-99); Non-African American GFR(CKD) >90 (>60 ml/min/1.73 sqM); Potassium 4.6 mmol/L (3.5-5.1); Sodium 141 mmol/L (137-145)
[2024-01-14] MEDS: ALPRAZolam 0.5 MG TAB PO PRN (13:06)
--- NOTE | 2024-01-14 15:26 | MR ---
EXAMINATION TYPE: MR lumbar spine wo/w con DATE OF EXAM: 01/14/2024 COMPARISON: CT lumbar spine 01/12/2024 HISTORY: Back pain with leg weakness CONTRAST: 5.5 mL intravenous Gadavist. TECHNIQUE: Multiplanar, multisequence images of the lumbar spine were acquired. FINDINGS: Cord terminates at the L1 level. Disc heights appear preserved. There is mild disc desicca tion L4-5 and L5-S1. L5-S1: No significant disc bulge or disc herniation. No spinal canal stenosis. There is moderate le ft foraminal stenosis. Mild facet hypertrophy is present.. L4-L5: No significant disc bulge or disc herniation. No spinal canal stenosis. No foraminal stenosi s. Mild facet hypertrophy is present with mild ligamentum flavum laxity. There is mild canal narrowi ng without spinal canal stenosis present. L3-L4: There is minimal left paracentral disc bulge with minimal anterior thecal sac compression. No spinal canal stenosis is present. Mild ligamentum flavum laxity is present. L2-L3: No significant disc bulge or disc herniation. No spinal canal stenosis. No foraminal stenosi s. L1-L2: No significant disc bulge or disc herniation. No spinal canal stenosis. No foraminal stenosi s. T12-L1: No significant disc bulge or disc herniation. No spinal canal stenosis. No foraminal stenos is. No abnormal enhancement. IMPRESSION: 1. Moderate left L5-S1 foraminal stenosis. Correlate for radicular symptoms. 2. Minimal left paracentral disc bulging L3-4 with minimal anterior thecal sac contact. 3. Mild ligamentum flavum laxity L4-5 may be contributing to mild spinal canal narrowing without sten osis.
--- NOTE | 2024-01-14 15:36 | MR ---
EXAMINATION TYPE: MR cervical spine wo con DATE OF EXAM: 01/14/2024 COMPARISON: 01/12/2024 HISTORY: Neck pain CONTRAST: Performed utilizing 9 mL intravenous Gadobutrol gadolinium contrast. TECHNIQUE: Multiplanar multiecho imaging on a 3.0 Gladys magnet is performed through the cervical spin e. FINDINGS: The craniovertebral junction is normal. Vertebral body alignment is normal. Disc heights appear preserved. Disc desiccation is present C2-3 C4-5 C5-6 C6-7. C7-T1: No focal disc herniation or significant disc bulge is evident. No spinal canal stenosis or n eural foraminal stenosis is present. C6-7: There is a large broad-based disc herniation with moderately prominent anterior thecal sac comp ression. Some subligamentous disc extension may extend superiorly. Cord contact and cord flattening i s present. AP spinal canal stenosis is present measuring 0.5 cm. Uncovertebral joint hypertrophy and disc contributing to bilateral severe foraminal stenosis. There may be some mild signal change within the spinal cord posterior to this level on T2-weighted images.. C5-6: Broad-based disc bulge is present slightly greater to the left paracentral region. There is mod erate anterior thecal sac compression. Cord contact is evident. Cord deformity is not identified. No AP spinal canal stenosis present. Moderate left foraminal stenosis is present. C4-5: Mild disc bulge has mild anterior thecal sac impression. This comes in close approximation with the spinal cord. No definite cord contact or cord deformity is evident. No AP spinal canal stenosis or neural foraminal stenosis is present.. C3-4: No focal disc herniation or significant disc bulge is evident. No spinal canal stenosis or andrew ral foraminal stenosis is present. C2-3: No focal disc herniation or significant disc bulge is evident. No spinal canal stenosis or andrew ral foraminal stenosis is present. IMPRESSION: 1. Large broad-based disc herniation C6-7 with significant anterior thecal sac compression. Cord cont act and cord deformity is present. Some mild signal change within the spinal cord is present adjacent to the disc herniation. Spinal canal stenosis is present. 2. Broad-based moderate disc herniation C5-6 with moderate anterior thecal sac compression. Cord cont act without cord deformity may be present. No spinal canal stenosis. 3. Mild disc bulge C4-5 without cord contact or spinal canal stenosis. 4. Foraminal narrowing bilaterally C6-7 and on the left at C5-6 discussed above.
--- NOTE | 2024-01-14 16:43 | P.PN ---
Progress Note - Text Progress Note Date: 01/14/24 REviewed note of JAMEEL Siddiqui and spoke with Medicine Attending. Pt has large disc herniation at C6-7 and Moderate at C5-6 causing severe central and b/l foraminal stenosis at these levels. 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 His sx correlate with myelopathic gait, difficulty with fine motor skills, hyperreflexia and weakness. We will discuss with him ACDF at C5-7 for this during his stay. We will start him on Decadron. We will plan on surgery 01/16/24.
--- NOTE | 2024-01-14 17:01 | P.PN ---
Subjective Progress Note Date: 01/14/24 Principal diagnosis: 1. Ataxia; bilateral lower extremity radiculopathy Patient was seen at bedside this afternoon lying semirecumbent position with family present during counter. Patient says there been no changes since he presented the hospital yesterday. Patient says he is still having difficulty with ambulation in the lower extremities when he gets up and walks with therapy. Patient states the numbness and tingling is present in the lower extremities as well. Patient denies any issues with bowel or bladder control. Patient denies saddle anesthesia. Patient denies chest pain, fever, chest breath, nausea, vomiting, change in vision. Objective - Vital Signs Vital signs: Vital Signs Temp 97.4 F L 01/14/24 07:00 Pulse 62 01/14/24 08:00 Resp 16 01/14/24 08:00 BP 128/78 01/14/24 07:00 Pulse Ox 99 01/14/24 07:00 FiO2 Intake & Output 01/13/24 01/14/24 01/14/24 18:59 06:59 18:59 Intake Total 120 Balance 120 Weight 89.811 kg Intake: Oral 120 Other: Voiding Method Toilet Toilet # Voids 1 - Exam Inspection: Negative for any open fractures, significant erythema/ecchymosis/open wounds. Sensation: Equal, symmetric, bilaterally intact throughout the upper and lower extremities on exam. Palpation: Nontender to palpation throughout exam Range of motion: Full range of motion throughout bilateral upper and lower extremities on exam Motor: 5/5 in all major motor groups in bilateral upper and lower extremity is on exam Special tests: Negative Homans bilaterally. Negative Janie bilaterally. Negative clonus bilaterally. Neurovascular: Radial pulses intact, 2+ bilaterally. Cap refill under 3 seconds in digits of upper extremities. - Labs CBC & Chem 7: 01/14/24 05:47 01/14/24 05:47 Labs: Abnormal Lab Results - Last 24 Hours (Table) 01/13/24 01/13/24 01/14/24 Range/Units 12:05 12:05 05:47 ESR 36 H (0-15) mm/Hr Chloride 108 H (98-107) mmol/L Glucose 100 H (74-99) mg/dL C-Reactive Protein 1.90 H (0.00-0.80) mg/dL Assessment and Plan Assessment: 1. Ataxia; bilateral lower extremity radiculopathy Plan: 1. Ataxia; bilateral lower extremity radiculopathy - computed tomography scan of the cervical and lumbar spine has been reviewed. CT of cervical spine is negative for any fractures/spondylolisthesis. Vertebra appear to Be well aligned at this time. Negative for any significant degenerative disc disease. Lumbar spine CT does reveal some mild neuroforaminal stenosis at several levels as well as degenerative disc disease. Negative for any fractures/spondylolisthesis. We are awaiting results of cervical and lumbar spine MRIs before proceeding with any potential intervention. Recommend conservative measures at this time with PT/OT, pain medication. Recommend other specialty recommendations. We will continue to follow patient during stay in hospital. 2. Appreciate medical and neurology management 3. Pain management - [place]; Tylenol 4. DVT prophylaxis - mechanical 5. GI prophylaxis - Dulcolax 6. PT/OT - weightbearing as tolerated with walker as needed and assistance Time with Patient: Less than 30
[2024-01-14] MEDS: DEXAMETHASONE SOD PHOSPHATE 4 MG/ML 1 ML VIAL IVP SCH (17:46)
--- NOTE | 2024-01-14 18:25 | P.PN ---
Subjective Progress Note Date: 01/14/24 Patient is a 43-year-old male with osteoarthritis and hypothyroidism who presented to the emergency department with complaints of progressive lower extremity weakness with significant back pain. On arrival to the ER his vital signs are within normal limits. Initial laboratory analysis was unremarkable. Patient underwent CT head and cervical spine which demonstrated no acute fracture or dislocation with vertebral bodies and disc heights maintained. He underwent lumbar spine CT which showed an L3-4 disc bulge with mild effacement of the anterior thecal sac, L4-5 broad-based disc protrusion effacing the anterior sac. He was admitted for possible spinal cord compression. He was seen by orthopedic surgery and neurology. He underwent cervical and lumbar spine MRIs which were significant for C5-6 and C6-7 disc herniations with significant cord deformity associated with the C6-7 disc herniation. Patient seen and examined at bedside. He continues to have some difficulty walking. He denies any difficulty urinating. He denies any back pain. Vital signs reviewed General: Nontoxic, no distress, appears at stated age Cardiovascular: S1S2 reg, no murmur Lungs: CTA bilateral, no rhonchi, no rales, no accessory muscle use Abdominal: Soft, nontender to palpation, no guarding Ext: No gross muscle atrophy, no edema b/l lower extremities, no contractures Neuro: CN II-XI grossly intact, All 4 extremities independently Psych: Alert, oriented, appropriate affect Assessment/Plan: Cervical myelopathy due to cervical disc herniation at C6-7 with cord compression -Case discussed with Dr. Baker. Patient is in danger of worsening permanent neurologic complications from his herniated disc with cord compression and will require surgical treatment during this hospital stay. Will start Decadron 4 mg IV every 6 hours and plan for surgery during this hospital stay. Will transition to inpatient status -Patient updated on plan of care -Mobic has been on hold since admission. -Continue with morphine as needed for pain control -B12 level normal, Lyme's titers negative, ESR and CRP mildly elevated. Hypothyroidism -Continue with Synthroid 25 mcg p.o., [place] Thyroid decreased to 90 mg oral daily given that patient's TSH is low at 0.305. Imaging: MRI cervical spine: Large broad-based disc herniation C6-7 with significant anterior thecal sac compression, cord contact and cord deformity is present with mild signal changes in the spinal cord adjacent to the disc herniation and spinal canal stenosis, broad-based moderate disc herniation C5-6 with anterior thecal sac compression, cord contact without cord deformity MRI lumbar spine: Moderate L5-S1 foraminal stenosis, minimal left paracentral disc bulge L3-4 with mild ligamentum flavum laxity L4-5 Data Review: CBC and basic metabolic profile from today reviewed and unremarkable. CRP elevated at 1.90, ESR 36. Lyme titer is negative. B12 normal. DVT prophylaxis: SCDs Anticipated discharge date: Pending clinical course Anticipated discharge place: Pending clinical course This dictation was prepared using [employer] voice recognition software. Though every attempt is made to correct errors during dictation some may still exist. Objective - Vital Signs Vital signs: Vital Signs Temp 98.2 F 01/14/24 14:52 Pulse 79 01/14/24 14:52 Resp 16 01/14/24 14:52 BP 128/72 01/14/24 14:52 Pulse Ox 96 01/14/24 14:52 FiO2 Intake & Output 01/13/24 01/14/24 01/14/24 18:59 06:59 18:59 Intake Total 120 Balance 120 Weight 89.811 kg Intake: Oral 120 Other: Voiding Method Toilet Toilet # Voids 1 3 - Labs CBC & Chem 7: 01/14/24 05:47 01/14/24 05:47 Labs: Abnormal Lab Results - Last 24 Hours (Table) 01/14/24 Range/Units 05:47 Chloride 108 H (98-107) mmol/L Glucose 100 H (74-99) mg/dL
[2024-01-15] MEDS: THYROID, PORK 30 MG TAB PO SCH ×2 (09:11)
[2024-01-15] MEDS: ALPRAZolam 0.5 MG TAB PO PRN (09:11)
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
--- NOTE | 2024-01-15 12:00 | P.PN ---
Subjective Progress Note Date: 01/15/24 Principal diagnosis: 1. Ataxia; bilateral lower extremity radiculopathy Patient was seen at bedside this morning at bedside lying semirecumbent position. Patient says there been no changes since he presented the hospital a couple days ago. Patient says he is still having difficulty with ambulation in the lower extremities when he gets up and walks with therapy. Patient states the numbness and tingling is present in the lower extremities as well. Patient denies any issues with bowel or bladder control. Patient denies saddle anesthesia. I did discuss the findings of the MRI of the cervical spine with the patient at bedside this morning. Patient is aware of the findings from MRI of cervical spine and we'll discuss with family about potential surgical intervention. Patient is looking forward to talking with Dr. Baker later today. Patient denies chest pain, fever, chest breath, nausea, vomiting, change in vision. Objective - Vital Signs Vital signs: Vital Signs Temp 98 F 01/15/24 07:00 Pulse 64 01/15/24 07:00 Resp 14 01/15/24 07:00 BP 134/87 01/15/24 07:00 Pulse Ox 99 01/15/24 07:00 FiO2 Intake & Output 01/14/24 01/15/24 01/15/24 18:59 06:59 18:59 Intake Total 120 Balance 120 Intake: Oral 120 Other: Voiding Method Toilet Toilet # Voids 3 1 - Exam Inspection: Negative for any open fractures, significant erythema/ecchymosis/open wounds. Sensation: Equal, symmetric, bilaterally intact throughout the upper and lower extremities on exam. Palpation: Nontender to palpation throughout exam Range of motion: Full range of motion throughout bilateral upper and lower extremities on exam Motor: 5/5 in all major motor groups in bilateral upper and lower extremity is on exam Special tests: Negative Homans bilaterally. Negative Janie bilaterally. Negative clonus bilaterally. Neurovascular: Radial pulses intact, 2+ bilaterally. Cap refill under 3 seconds in digits of upper extremities. - Labs CBC & Chem 7: 01/14/24 05:47 01/14/24 05:47 Assessment and Plan Assessment: 1. Ataxia; bilateral lower extremity radiculopathy; C5 to C6 and C6 to C7 moderate to severe central canal and neuroforaminal stenosis Plan: 1. Ataxia; bilateral lower extremity radiculopathy; C5 to C6 and C6 to C7 moderate to severe central canal and neuroforaminal stenosis - MRI of the cervical spine does reveal moderate to severe central canal and neuroforaminal stenosis at C5 to C6 and C6 to C7. The findings on MRI are likely contributing to the patient's ongoing symptoms in the lower extremities. I discussed findings with my attending, Dr. Baker. At this time we are recommending surgical intervention in the form of C5-C6 and C6 to C7 anterior cervical discectomy and fusion. Surgery has been scheduled for tomorrow, Thursday, 01/16/[id number] to C7 ACDF. Patient be nothing by mouth beginning at midnight tonight. Patient may weight-bear as tolerated for now. Pain medication as needed. Continue IV steroids. We will continue to follow patient during his stay in hospital. 2. Appreciate medical and neurology management 3. Pain management - [place]; Tylenol 4. DVT prophylaxis - mechanical 5. GI prophylaxis - Dulcolax 6. PT/OT - weightbearing as tolerated with walker as needed and assistance 7. Encourage incentive spirometer use
--- NOTE | 2024-01-15 12:59 | P.PN ---
Subjective Progress Note Date: 01/15/24 Patient is a 43-year-old male with osteoarthritis and hypothyroidism who presented to the emergency department with complaints of progressive lower extremity weakness with significant back pain. On arrival to the ER his vital signs are within normal limits. Initial laboratory analysis was unremarkable. Patient underwent CT head and cervical spine which demonstrated no acute fracture or dislocation with vertebral bodies and disc heights maintained. He underwent lumbar spine CT which showed an L3-4 disc bulge with mild effacement of the anterior thecal sac, L4-5 broad-based disc protrusion effacing the anterior sac. He was admitted for possible spinal cord compression. He was seen by orthopedic surgery and neurology. He underwent cervical and lumbar spine MRIs which were significant for C5-6 and C6-7 disc herniations with significant cord deformity associated with the C6-7 disc herniation. Patient seen and examined at bedside with present. He is feeling slightly anxious about undergoing potential surgery. He is anxious to talk with Dr. Baker. He denies any chest pain or shortness of breath. Vital signs reviewed General: Nontoxic, no distress, appears at stated age Cardiovascular: S1S2 reg, no murmur Lungs: CTA bilateral, no rhonchi, no rales, no accessory muscle use Abdominal: Soft, nontender to palpation, no guarding Ext: No gross muscle atrophy, no edema b/l lower extremities, no contractures Neuro: CN II-XI grossly intact, moving ALL 4 extremities independently Psych: Alert, oriented, appropriate affect Assessment/Plan: Cervical myelopathy due to cervical disc herniation at C6-7 with cord compression -Decadron 4 mg IV every 6 hours - Anticipated ACDF C5-7 -Mobic has been on hold since admission. -Continue with morphine as needed for pain control -B12 level normal, Lyme's titers negative, ESR and CRP mildly elevated. -Neurology note reviewed. Agree with MRI findings. NSQIP risk score for discectomy, anterior with decompression of spinal cord and nerve roots including osteophytectomy, cervical -Patient is below average risk for serious complication, any complication, cardiac complication, , or return to OR. Will obtain EKG. Patient is medically optimized for the proposed spinal surgery. No additional testing indicated at this time prior to procedure. Hypothyroidism -Continue with Synthroid 25 mcg p.o., [place] Thyroid 90 mg oral daily given that patient's TSH is low at 0.305. Anxiety, situational -Increase Xanax frequency to 0.5 mg 3 times daily as needed Imaging: none new Hospital Course Imaging MRI cervical spine: Large broad-based disc herniation C6-7 with significant anterior thecal sac compression, cord contact and cord deformity is present with mild signal changes in the spinal cord adjacent to the disc herniation and spinal canal stenosis, broad-based moderate disc herniation C5-6 with anterior thecal sac compression, cord contact without cord deformity MRI lumbar spine: Moderate L5-S1 foraminal stenosis, minimal left paracentral disc bulge L3-4 with mild ligamentum flavum laxity L4-5 Data Review: No labs needed today. DVT prophylaxis: SCDs Anticipated discharge date: Pending clinical course Anticipated discharge place: Pending clinical course This dictation was prepared using [employer] voice recognition software. Though every attempt is made to correct errors during dictation some may still exist. Objective - Vital Signs Vital signs: Vital Signs Temp 98 F 01/15/24 07:00 Pulse 64 01/15/24 08:00 Resp 14 01/15/24 08:00 BP 134/87 01/15/24 07:00 Pulse Ox 99 01/15/24 07:00 FiO2 Intake & Output 01/14/24 01/15/24 01/15/24 18:59 06:59 18:59 Intake Total 120 Balance 120 Intake: Oral 120 Other: Voiding Method Toilet Toilet Toilet # Voids 3 1 - Labs CBC & Chem 7: 01/14/24 05:47 01/14/24 05:47
--- NOTE | 2024-01-15 15:22 | P.PN ---
Progress Note - Text Progress Note Date: 01/15/24 Spine Surgery Clinical and Risk Review GABRIELLA HERNÁNDEZ is a 43 YO MALE presenting for evaluation of WEAKNESS IN LE, ANTALGIC GAIT, UE WEAKNESS, FINE MOTOR DISRUPTION. It was my pleasure to have seen and examined GABRIELLA HERNÁNDEZ. In our visit today we have had a chance to go over subjective complaints, physical examination findings and treatments including the natural course history without intervention and various interventional options. The patients imaging demonstrates C4-7 spondylosis with C5-6 stenosis and C6-7 HNP with severe stenosis, myelomalacia. C5-6 shows moderate to severe stenosis due to disc bulge and herniation as well. On physical exam, GABRIELLA HERNÁNDEZ demonstrates myelopathic gait with steppage and unsteady which is improved on steroids. He has weakness 4/5 in wrist extension, EPL, Bicep and Tricep on the RUE. He has weakness in Tricep 4/5 LUE but 5/5 all others LUE. He has weakness in LE b/l as well and is unsteady on his feet. He has intact sensation at this time without tensioning signs. He has disturbed fine motor skills, but has improvement with steroids. He denies any radicular sx with provocative testing. He denies any bowel or bladder issues at this time. I have explained to the patient that as their condition progresses it will cause further neurological deficits and eventual paralysis. Based on the patients imaging, physical exam, and the rapid progression and disabling nature of their symptoms, at this time I recommend surgery in the form or a: C5-7 anterior cervical discectomy and fusion. I discussed the risk and benefits of this procedure at length with GABRIELLA HERNÁNDEZ. The patient IN ROOM agreed to considered pursuing the procedure abovementioned. Prior to surgery, she should follow up with her PCP (Cardio, ID, IM etc) for clearance. Questions were invited and answered, and the patient wishes to proceed as outlined below. Currently, I am recommendin. C5-7 ANTERIOR CERVICAL DISCECOMTY AND FUSION 2. Follow up with PCP for surgical clearance 3. Review of surgical risks and benefits as well as an educational packet on the proposed surgical procedure. Risks: All surgical procedures come with inherent risks, including those related to positioning, anesthesia, intraoperative findings, and postoperative complications. It is important to understand that surgery does not come with any guarantee of a successful outcome as complications and adverse events are always possible. The patient was given a handout in office today discussing the surgical procedure and risks associated with the intervention, both of which were discussed with the patient. These risks include but are not limited to the following: * Experiencing same, different or even worse symptoms in back, neck, arms, or legs compared to before surgery. * Requiring further surgery or other forms of treatment presently or at some time in the future at same or other levels of the intended spine surgery. * On an extreme but fortunately relatively rare basis severe complication such as blindness, stroke, heart attack, temporary and/or permanent nerve injury, paralysis, coma, or may occur, sometimes without known explanation. * Surgical complications may include but are not limited to risk of infection, fluid accumulation in the surgical dissection site, including a seroma or hematoma, that requires additional surgery, wound drainage, bleeding, new numbness or weakness, vision changes/loss, spinal fluid leakage, non-healing and/or infected incision, headaches, difficulty or inability to swallow, hoarseness, hemopneumothorax, pneumothorax, impotence, retrograde ejaculation, vaginal dryness; injury to nerves, spinal cord, blood vessels, lymphatics or other vital organs (i.e., bowel injury, injury to the great vessels); heterotopic bone formation; complications related to the hardware such as screws, rods, cages including misplaced hardware, device failure, instrumentation at the wrong spine level, hardware fracture/breakage, or hardware loosening; vertebral failure of the spinal column above or below the newly placed hardware; retained surgical instrumentations or devices and the need for further surgery. * Medical risks of the planned spine surgery include but are not limited to generalized Infections to the whole body or local areas outside of the surgical site (sepsis), heart attack, bleeding, anaphylaxis, meningitis, seizure, epilepsy, hearing loss, burn arias, laceration of the head or other areas of the body, bruising, hypersensitivity of the skin, bladder over distension; allergic reaction; shoulder injury related to positioning; fat, blood and air clots to other areas of the body like heart, lungs, brain; failure of internal organs such as lungs, kidneys, liver and excessive bleeding. If blood transfusions are necessary, note that transfusions may cause intolerance reactions such as anaphylaxis or other complex reactions. * Despite best efforts, the results of spine surgery might not heal in terms of bone, soft tissues such as skin, fascia, ligaments, and joints. Additionally, in order to achieve best possible results, spine surgery may be carried out beyond the initially planned levels and involve decompression, fusion including insertion of hardware at levels other than the original intended area of surgical interest change some portions of the procedure in order to ensure the best possible outcomes. * With spine surgery and spinal fusion, there are different off label uses of instrumentation (devices, implants and hardware) as well as biological substances (bone morphogenic proteins, demineralized bone matrix) as well as using extra bone from allograft sources (i.e. cadaver bone) or autograft (iliac crest bone, ribs, or the spine itself). The patient has been given information about these practices and their inherent risks and benefits. The patient has had a chance to review all the listed information, has been giv en print outs detailing this information, and has had all his/her questions answered to their satisfaction. It was my pleasure to have seen and examined GABRIELLA HERNÁNDEZ. In our visit today we have had a chance to go over my understanding of our patient's current condition, the natural course history without intervention and various interventional options. Questions were invited and answered, and the patient wishes to proceed as outlined above. I have seen and examined the patient for 25 minutes and we have spent more than 50% of the time in repeat and detailed co unseling about the patient's condition, its natural course history with out and as much as can be predicted with surgery and re-review of various surgical treatment options. In conclusion, GABRIELLA HERNÁNDEZ and requested we proceed with the above suggested surgery and are willing to accept risks and limitations of the suggested surgery as nature of the disease process and our best attempts at treatment for the condition. Thank you again for allowing us to be part of your patient's care. Please don't hesitate to contact me if you have any further questions. Signed and authenticated by: Sandip Benitez [facility] [address], [address] [address]
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
[2024-01-15] MEDS: bisacodyL 5 MG TABLET.DR PO PRN (20:18)
[2024-01-15] MEDS: MELATONIN 5 MG TABLET PO PRN (20:18)
[2024-01-16 06:06] LABS: HCT 43.5 % (39.0-53.0); HGB 14.1 gm/dL (13.0-17.5); MCHC 32.5 g/dL (31.0-37.0); Mean Platelet Volume 6.8; Platelet Count 297 k/uL (150-450); RBC 5.06 m/uL (4.30-5.90); RDW 13.1 % (11.5-15.5); WBC 16.1 k/uL (3.8-10.6)
[2024-01-16 06:16] LABS: African American GFR (CKD) >90 (>60 ml/min/1.73 sqM); Anion Gap 7 mmol/L; Blood Urea Nitrogen 18 mg/dL (9-20); Calcium 9.5 mg/dL (8.4-10.2); Carbon Dioxide 27 mmol/L (22-30); Chloride 106 mmol/L (98-107); Glucose 144 mg/dL (74-99); Non-African American GFR(CKD) >90 (>60 ml/min/1.73 sqM); Potassium 4.5 mmol/L (3.5-5.1); Sodium 140 mmol/L (137-145)
[2024-01-16 06:37] LABS: INR 1.1 (<1.2); Partial Thromboplastin Time 22.9 sec (22.0-30.0); Prothrombin Time 11.4 sec (10.0-12.5)
[2024-01-16] MEDS ORDERED: DEXAMETHASONE SOD PHOSPHATE 4 MG/ML 1 ML VIAL ONE (08:52)
[2024-01-16] MEDS ORDERED: MIDAZOLAM 2 MG/2 ML VIAL ONE (08:52)
[2024-01-16] MEDS ORDERED: KETAMINE HCL IN 0.9 % NACL 50 MG/5 ML SYRINGE ONE (08:52)
[2024-01-16] MEDS ORDERED: ceFAZolin 1 GM/50 ML BAG (PMX) ONE (08:52)
[2024-01-16] MEDS ORDERED: ONDANSETRON 4 MG/2 ML VIAL ONE (08:52)
[2024-01-16] MEDS ORDERED: SUCCINYLCHOLINE CHLORIDE 200 MG/10 ML VIAL IV ONE (08:52)
[2024-01-16] MEDS ORDERED: TRANEXAMIC 1,000 MG/100ML-NACL PREMIX BAG ONE (08:52)
[2024-01-16] MEDS ORDERED: LIDOCAINE 1% INJ 10MG/ML (20 ML MDV) ONE (08:52)
[2024-01-16] MEDS ORDERED: fentaNYL (PF) 50 MCG/ML 2 ML AMP ONE (08:52)
[2024-01-16] MEDS ORDERED: PROPOFOL 10 MG/ML 20 ML VIAL IV ONE (08:52)
[2024-01-16] MEDS: LACTATED RINGERS 1,000 ML IV ONE ×2 (08:56)
[2024-01-16] MEDS: THROMBIN (BOVINE) 5,000 UNIT VIAL TOPICAL ONE (09:37)
[2024-01-16] MEDS: GELATIN SPONGE,ABSORB (LARGE) 1 EACH SPONGE MISCELLANE ONE (09:37)
--- NOTE | 2024-01-16 10:45 | P.OP ---
Date of Procedure: 01/16/24 Preoperative Diagnosis: 1. CERVICAL SPONDYLOTIC MYELOPATHY 2. C6-7 LARGE HNP WITH SEVERE STENOSIS AND MYELOMALACIA 3. MYELOPATHIC GAIT 4. UE AND LE WEAKNESS Postoperative Diagnosis: 1. CERVICAL SPONDYLOTIC MYELOPATHY 2. C6-7 LARGE HNP WITH SEVERE STENOSIS AND MYELOMALACIA 3. MYELOPATHIC GAIT 4. UE AND LE WEAKNESS Procedure(s) Performed: 1. C6-7 ANTERIOR CERVICAL ARTHRODESIS (43619) 2. C6-7 ANTERIOR INSTRUMENTATION (47875) 3. C6-7 INSERTION OF BIOMECHANICAL DEVICE (12558) USE OF IONM USE OF IO MICROSCOPE Implants: -VANESSA CASCADIA CAGE 11 MM -VANESSA OZARK PLATE 26 MM -MAGNATOS Anesthesia: GETA Surgeon: Sandip Baker Assistant Tennis Professional #1: Albert Phillips (WAS PRESENT AND ASSISTED WITH ALL ASPECTS OF THE CASE FROM POSITION TO CLOSURE) Estimated Blood Loss (ml): 25 IV fluids (ml): 1,100 Urine output (ml): 0 Pathology: none sent Condition: stable Disposition: PACU Indications for Procedure: GABRIELLA HERNÁNDEZ is a 43 YO MALE presenting for evaluation of WEAKNESS IN LE, ANTALGIC GAIT, UE WEAKNESS, FINE MOTOR DISRUPTION. It was my pleasure to have seen and examined GABRIELLA HERNÁNDEZ. In our visit today we have had a chance to go over subjective complaints, physical examination findings and treatments including the natural course history without intervention and various interventional options. The patients imaging demonstrates C4-7 spondylosis with C5-6 stenosis and C6-7 HNP with severe stenosis, myelomalacia. C5-6 shows moderate to severe stenosis due to disc bulge and herniation as well. On physical exam, GABRIELLA HERNÁNDEZ demonstrates myelopathic gait with steppage and unsteady which is improved on steroids. He has weakness 4/5 in wrist extension, EPL, Bicep and Tricep on the RUE. He has weakness in Tricep 4/5 LUE but 5/5 all others LUE. He has weakness in LE b/l as well and is unsteady on his feet. He has intact sensation at this time without tensioning signs. He has disturbed fine motor skills, but has improvement with steroids. He denies any radicular sx with provocative testing. He denies any bowel or bladder issues at this time. I have explained to the patient that as their condition progresses it will cause further neurological deficits and eventual paralysis. Based on the patients imaging, physical exam, and the rapid progression and disabling nature of their symptoms, at this time I recommend surgery in the form or a: C5-7 anterior cervical discectomy and fusion. I discussed the risk and benefits of this procedure at length with GABRIELLA HERNÁNDEZ. The patient IN ROOM agreed to considered pursuing the procedure abovementioned. Prior to surgery, she should follow up with her PCP (Cardio, ID, IM etc) for clearance. Questions were invited and answered, and the patient wishes to proceed as outlined below. Currently, I am recommendin. C5-7 ANTERIOR CERVICAL DISCECOMTY AND FUSION Description of Procedure: C6-7 ACDF The patient was seen and examined in the preoperative area. All preoperative protocols were followed. Informed consent was obtained, risks and benefits of the procedure were discussed at length. Risks including bleeding infection damage to the surrounding tissue and risk of reoperation were discussed with the patient. Risk of anesthesia up to and including was discussed with the patient. These are outlined in the risk review. They were willing to accept these risks and all the risks of surgery. The patient was given a weight-based dose of antibiotics in the form of 2 g Ancef. The patient was seen and eval uated by the anesthesia team who deemed them fit for surgery. The site was marked, the patient was willing to proceed with the procedure. The patient was transferred to the operative suite by the Department of anesthesia. They were then drifted off to sleep by the department anesthesia and GETA was performed. The patient tolerated this well. Simms catheter was placed by nursing staff, a-traumatically. Once confirmation of lines and ventilation the patient was transferred to a Supine Teodoro table very carefully. All bony prominences including wrists, elbows, axilla, chest, hips, and thighs, and feet were padded very well. Special attention was paid to the genitalia, and these were padded accordingly. SCDs were placed on bilateral lower extremities and were connected. Arms were well padded and placed at their side thumbs up. Once in position, again we confirmed good ventilation capabilities and that lines were running appropriately. The patients Cervical spine was then exposed. 1010s were placed outlining the incision site. Standard alcohol was used to clean the incision site and allowed to dry. C-arm was used to bio-anurag the patient and confirm level for incision which was marked with a skin marker. Operative briefing was performed with all teams and everyone in agreement to proceed. The patient was then prepped and draped in a normal sterile fashion. Timeout was then performed, and all parties agreed with the procedure to be performed. Transverse skin incision was then made on the right side of the patient's neck 3 cm and dissection taken down to the platysma which was split transversely. Sub platysma flap was made, and interval identified between SCM and medial structures. Omohyoid was visualized and protected. Blunt dissection taken down to the anterior cervical fascia which was identified. Blunt probe was then placed and lateral image taken which confirmed levels for operation. These levels were then marked with a bovi. Subperiosteal dissection of the longissimus muscles were then done over these levels identifying uncovertebral joints bilaterally. Retractor was then placed deep to these muscles and held in place with a bed arm. Starting at C6-7, Ruston pins were placed into C6 and C7 and gentle distraction taken out over the levels. Jina rongeur used to remove disc material. Operating microscope brought in for visualization. Complete discectomy performed at this level with curette, rongure and pituitary. High speed vernon used to remove osteophytes anteriorly and posteriorly until PLL was identified. 6-0 up curette then used to identify the canal and resect the PLL. 2-0 and 3-0 Kerrison used then to remove PLL and disc herniation and performed b/l foraminotomies. Once good decompression was accomplished, meticulous hemostasis was performed. Sizers were then placed under lateral fluoroscopy until the desired height and lordosis. Cage was then selected, packed with autograft and allograft and placed under lateral imaging. Once in good position it was tested and stable. Motors run before and after cage placement were stable. The wound was irrigated, and autograft placed lateral to the cage anteriorly for fusion. Ruston pin was then removed from C7 and C6 and bone wax placed in their void. A separate, non-integrated plate was then selected and sized under lateral image. The plate was then placed with screws. Fixed screws drilled into C7 b/l and screws placed. Then into C6 and secured. All locking mechanisms were set, and all screws had good purchase. Final AP and lateral images taken confirmed good placement of hardware and good reduction and pentecostal of height. The wound was then irrigated copiously with NSS. Surgicel placed deep in the wound. Meticulous hemostasis had been achieved. Layered closure then performed with 3- 0 Vicryl in the platysma and subQ tissue. 4-0 Strata fix in the subcuticular tissue. The wound was then cleaned, and dried and skin glue placed. Once glue dried on Opifoam was placed. The patient was then transferred back to their hospital bed a-traumatically. They were placed in a soft collar. They were then awakened by the department of anesthesia having tolerated the procedure well without complications.
--- NOTE | 2024-01-16 10:59 | FL ---
EXAMINATION TYPE: FL guidance operating room, XR cervical spine limited Intraoperative/procedural flu oroscopic services were provided. Total fluoroscopy time is 14.7 seconds with a total of 7 submitted images to PACS. Please see the operative/procedural note for further details. DAP: 0.5020 Gycm2
[2024-01-16] MEDS ORDERED: SENNOSIDES-DOCUSATE SODIUM 1 EACH TAB PO PRN (11:04)
[2024-01-16] MEDS: HYDROmorphone 0.5 MG/0.5 ML SYRINGE IVP ONE ×2 (11:26→11:35)
[2024-01-16] MEDS: HYDROmorphone 0.5 MG/0.5 ML SYRINGE IVP PRN (12:34)
[2024-01-16] MEDS: HYDROcodone/APAP 10-325MG 1 EACH TAB PO PRN ×2 (13:09→18:25)
--- NOTE | 2024-01-16 14:56 | CT ---
EXAMINATION TYPE: CT cervical spine wo con CT DLP: 359.9 mGycm, Automated exposure control for dose reduction was used. DATE OF EXAM: 01/16/2024 2:24 PM COMPARISON: 01/12/2024. CLINICAL INDICATION:Male, 43 years old with history of s/p C6-C7 ACDF; PHH, s/p C-6 C-7 ACDF TECHNIQUE: Axial CT images from the skull base to the inferior aspect of T2 we obtained without intra venous contrast. Coronal and sagittal reformatted images were also reviewed. Contrast used: mL of , (if blank None) Oral contrast used: (if blank None) FINDINGS: Postsurgical changes with fixation hardware C6-C7. Hardware appears intact. Subcutaneous gas along th e surgical bed. Drainage catheter in the surgical bed. No evidence of fracture. Mild multilevel degen eration changes of the spine. IMPRESSION: Post surgical changes with hardware intact. No immediate postop complications identified.
[2024-01-16] MEDS ORDERED: HYDROcodone/APAP 5-325MG 1 EACH TAB PO PRN (17:10)
--- NOTE | 2024-01-16 17:14 | P.PN ---
Subjective Progress Note Date: 01/16/24 Patient is a 43-year-old male with osteoarthritis and hypothyroidism who presented to the emergency department with complaints of progressive lower extremity weakness with significant back pain. On arrival to the ER his vital signs are within normal limits. Initial laboratory analysis was unremarkable. Patient underwent CT head and cervical spine which demonstrated no acute fracture or dislocation with vertebral bodies and disc heights maintained. He underwent lumbar spine CT which showed an L3-4 disc bulge with mild effacement of the anterior thecal sac, L4-5 broad-based disc protrusion effacing the anterior sac. He was admitted for possible spinal cord compression. He was seen by orthopedic surgery and neurology. He underwent cervical and lumbar spine MRIs which were significant for C5-6 and C6-7 disc herniations with significant cord deformity associated with the C6-7 disc herniation. Patient seen and examined at bedside postoperatively. His pain is fairly well-controlled at a 6-7 out of 10. Vital signs reviewed General: Nontoxic, no distress, appears at stated age Cardiovascular: S1S2 reg, no murmur Lungs: CTA bilateral, no rhonchi, no rales, no accessory muscle use Abdominal: Soft, nontender to palpation, no guarding Ext: No gross muscle atrophy, no edema b/l lower extremities, no contractures Neuro: CN II-XI grossly intact, moving ALL 4 extremities independently Psych: Alert, oriented, appropriate affect Assessment/Plan: Cervical myelopathy due to cervical disc herniation at C6-7 with cord compression Status post ACDF C6-7 -Norco5/325 for mild pain and 10/325 4 severe pain every 4 hours as needed, Dilaudid 0.5 to 1 mg as IV breakthrough option -Add gabapentin 100 mg 3 times daily -Decadron 4 mg IV every 6 hours, start to wean in AM -Mobic has been on hold since admission. -B12 level normal, Lyme's titers negative, ESR and CRP mildly elevated. Hypothyroidism -Continue with Synthroid 25 mcg p.o., Henley Thyroid 90 mg oral daily given that patient's TSH is low at 0.305. Anxiety, situational - Xanax frequency to 0.5 mg 3 times daily as needed Imaging: none new Hospital Course Imaging MRI cervical spine: Large broad-based disc herniation C6-7 with significant anterior thecal sac compression, cord contact and cord deformity is present with mild signal changes in the spinal cord adjacent to the disc herniation and spinal canal stenosis, broad-based moderate disc herniation C5-6 with anterior thecal sac compression, cord contact without cord deformity MRI lumbar spine: Moderate L5-S1 foraminal stenosis, minimal left paracentral disc bulge L3-4 with mild ligamentum flavum laxity L4-5 Data Review: Labs reviewed from today include CBC and basic metabolic profile which are remarkable for white blood cell count of 16.1 DVT prophylaxis: SCDs Anticipated discharge date: Pending clinical course Anticipated discharge place: Pending clinical course This dictation was prepared using [employer] voice recognition software. Though every attempt is made to correct errors during dictation some may still exist. Objective - Vital Signs Vital signs: Vital Signs Temp 98.0 F 01/16/24 10:54 Pulse 57 L 01/16/24 13:45 Resp 16 01/16/24 12:15 BP 154/88 01/16/24 13:45 Pulse Ox 93 L 01/16/24 13:45 FiO2 Intake & Output 01/15/24 01/16/24 01/16/24 18:59 06:59 18:59 Intake Total 118 700 Output Total 25 Balance 118 675 Intake: IV 700 Oral 118 Output: Estimated Blood Loss 25 Other: Voiding Method Toilet Toilet # Voids 4 1 # Bowel Movements 2 - Labs CBC & Chem 7: 01/16/24 05:54 01/16/24 05:54 Labs: Abnormal Lab Results - Last 24 Hours (Table) 01/16/24 01/16/24 Range/Units 05:54 05:54 WBC 16.1 H (3.8-10.6) k/uL Glucose 144 H (74-99) mg/dL
[2024-01-16] MEDS: GABAPENTIN 100 MG CAP PO SCH (17:33)
[2024-01-17 07:56] LABS: Basophils # (A) 0.1 k/uL (0-0.2); Basophils % (A) 0 %; Eosinophils % (A) 0 %; HCT 40.3 % (39.0-53.0); HGB 12.9 gm/dL (13.0-17.5); Lymphocytes # (A) 1.5 k/uL (1.0-4.8); Lymphocytes % (A) 7 %; MCH 27.8 pg (25.0-35.0); MCHC 32.1 g/dL (31.0-37.0); MCV 86.5 fL (80.0-100.0); Mean Platelet Volume 7.8; Monocytes # (A) 1.1 k/uL (0-1.0); Monocytes % (A) 5 %; Neutrophils # (A) 17.7 k/uL (1.3-7.7); Neutrophils % (A) 86 %; Platelet Count 268 k/uL (150-450); RBC 4.65 m/uL (4.30-5.90); RDW 13.5 % (11.5-15.5); WBC 20.6 k/uL (3.8-10.6)
[2024-01-17 08:13] LABS: African American GFR (CKD) >90 (>60 ml/min/1.73 sqM); Anion Gap 9 mmol/L; Blood Urea Nitrogen 17 mg/dL (9-20); Calcium 8.9 mg/dL (8.4-10.2); Carbon Dioxide 27 mmol/L (22-30); Chloride 104 mmol/L (98-107); Glucose 116 mg/dL (74-99); Non-African American GFR(CKD) >90 (>60 ml/min/1.73 sqM); Potassium 4.4 mmol/L (3.5-5.1); Sodium 140 mmol/L (137-145)
[2024-01-17] MEDS: HYDROmorphone 1 MG/ML 1 ML SYRINGE IVP PRN (09:45)
--- NOTE | 2024-01-17 10:00 | P.PN ---
Subjective Progress Note Date: 01/17/24 Principal diagnosis: 1. Ataxia; bilateral lower extremity radiculopathy Patient was seen at bedside this morning sitting up in the semirecumbent position with hard cervical collar, drain and dressing in place over anterior cervical spine. Patient says she has been up walking since surgery yesterday. Patient says he has urinated several times since surgery yesterday. Patient says he has not had a bowel movement yet, however, patient says he has been passing gas. Patient says he is complaining of a little bit of swelling in the neck, however he was aware of this. Patient is hoping to stay one more additional night for pain control and therapy. Patient denies any issues at this time. Patient does notice a change and has not had any numbness or tingling in his feet since surgery. Patient denies chest pain, fever, shortness of breath, nausea, vomiting, change in vision, loss of bowel/bladder control. Objective - Vital Signs Vital signs: Vital Signs Temp 98.1 F 01/17/24 07:25 Pulse 51 L 01/17/24 07:25 Resp 18 01/17/24 07:25 BP 145/78 01/17/24 07:25 Pulse Ox 95 01/17/24 07:25 FiO2 Intake & Output 01/16/24 01/17/24 01/17/24 18:59 06:59 18:59 Intake Total 700 Output Total 35 Balance 665 Intake: IV 700 Output: Drainage 10 Right 10 Estimated Blood Loss 25 Other: # Voids 1 1 - Exam Inspection: Hard cervical collar is in place. Dressing and drain are present o robert the anterior cervical spine. Plan for dressing change tomorrow Sensation: Equal, symmetric, bilaterally intact throughout the upper and lower extremities on exam. Palpation: Some generalized tenderness to palpation near the incision over the anterior cervical spine. Nontender to palpation throughout rest of exam. Range of motion: Full range of motion throughout bilateral upper and lower e xtremities on exam Motor: 5/5 in all major motor groups in bilateral upper and lower extremities on exam Special tests: Negative Homans bilaterally. Negative Janie bilaterally. Negative clonus bilaterally. Neurovascular: Radial pulses intact, 2+ bilaterally. Cap refill under 3 seconds in digits of upper extremities. - Labs CBC & Chem 7: 01/17/24 06:24 02/25/24 06:24 Labs: Abnormal Lab Results - Last 24 Hours (Table) 01/17/24 01/17/24 Range/Units 06:24 06:24 WBC 20.6 H (3.8-10.6) k/uL Hgb 12.9 L (13.0-17.5) gm/dL Neutrophils # 17.7 H (1.3-7.7) k/uL Monocytes # 1.1 H (0-1.0) k/uL Glucose 116 H (74-99) mg/dL Assessment and Plan Assessment: 1. 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 Patient stable at bedside this morning with hard cervical collar in place and dressing and drain. Weightbearing as tolerated with walker as needed. Plan for drain removal and dressing change tomorrow. Patient may weight-bear as tolerated with hard c- collar in place at all times. Pain medication as needed. We will continue to follow patient during his stay in hospital. Likely stable for discharge home tomorrow from ortho standpoint. 2. Appreciate medical and neurology management 3. Pain management - [place]; Tylenol 4. DVT prophylaxis - mechanical 5. GI prophylaxis - Dulcolax 6. PT/OT - weightbearing as tolerated with walker as needed and hard cervical collar in place at all times and assistance 7. Encourage incentive spirometer use Time with Patient: Less than 30
--- NOTE | 2024-01-17 12:21 | P.PN ---
Subjective Progress Note Date: 01/17/24 (marek charting seen at 0915) Patient is a 43-year-old male with osteoarthritis and hypothyroidism who presented to the emergency department with complaints of progressive lower extremity weakness with significant back pain. On arrival to the ER his vital signs are within normal limits. Initial laboratory analysis was unremarkable. Patient underwent CT head and cervical spine which demonstrated no acute fracture or dislocation with vertebral bodies and disc heights maintained. He underwent lumbar spine CT which showed an L3-4 disc bulge with mild effacement of the anterior thecal sac, L4-5 broad-based disc protrusion effacing the anterior sac. He was admitted for possible spinal cord compression. He was seen by orthopedic surgery and neurology. He underwent cervical and lumbar spine MRIs which were significant for C5-6 and C6-7 disc herniations with significant cord deformity associated with the C6-7 disc herniation. He underwent ACDF C6-7 on 01/16/24. Doing well. Pain is manageable postoperatively. Having some soreness in his neck but no difficulty swallowing. Vital signs reviewed General: Nontoxic, no distress, appears at stated age Cardiovascular: S1S2 reg, no murmur Lungs: CTA bilateral, no rhonchi, no rales, no accessory muscle use Abdominal: Soft, nontender to palpation, no guarding Ext: No gross muscle atrophy, no edema b/l lower extremities, no contractures Neuro: CN II-XI grossly intact, moving ALL 4 extremities independently Psych: Alert, oriented, appropriate affect Assessment/Plan: Cervical myelopathy due to cervical disc herniation at C6-7 with cord compression Status post ACDF C6-7 -Orthospine note reviewed: Likely stable for discharge home tomorrow from Ortho standpoint. -Norco5/325 for mild pain and 10/325 4 severe pain every 4 hours as needed, Dilaudid 0.5 to 1 mg as IV breakthrough option - gabapentin 100 mg 3 times daily -Decrease Decadron to 4 mg IV every 12 hours. Plan to stop in AM. -Mobic has been on hold since admission. -B12 level normal, Lyme's titers negative, ESR and CRP mildly elevated. Go cytosis, reactive to steroids -Repeat CBC in a.m. Hypothyroidism -Continue with Synthroid 25 mcg p.o., Whipple Thyroid 90 mg oral daily given that patient's TSH is low at 0.305. Anxiety, situational - Xanax frequency to 0.5 mg 3 times daily as needed Imaging: none new Hospital Course Imaging MRI cervical spine: Large broad-based disc herniation C6-7 with significant anterior thecal sac compression, cord contact and cord deformity is present with mild signal changes in the spinal cord adjacent to the disc herniation and spinal canal stenosis, broad-based moderate disc herniation C5-6 with anterior thecal sac compression, cord contact without cord deformity MRI lumbar spine: Moderate L5-S1 foraminal stenosis, minimal left paracentral disc bulge L3-4 with mild ligamentum flavum laxity L4-5 Data Review: Labs reviewed from today include CBC and basic metabolic profile which are remarkable for white blood cell count 20 and hemoglobin of 12.9. DVT prophylaxis: SCDs Anticipated discharge date: Pending clinical course Anticipated discharge place: Pending clinical course This dictation was prepared using [employer] voice recognition software. Though every attempt is made to correct errors during dictation some may still exist. Objective - Vital Signs Vital signs: Vital Signs Temp 98.1 F 01/17/24 07:25 Pulse 51 L 01/17/24 07:25 Resp 18 01/17/24 07:25 BP 145/78 01/17/24 07:25 Pulse Ox 95 01/17/24 07:25 FiO2 Intake & Output 01/16/24 01/17/24 01/17/24 18:59 06:59 18:59 Intake Total 700 Output Total 35 Balance 665 Intake: IV 700 Output: Drainage 10 Right 10 Estimated Blood Loss 25 Other: # Voids 1 1 - Labs CBC & Chem 7: 01/17/24 06:24 01/17/24 06:24 Labs: Abnormal Lab Results - Last 24 Hours (Table) 01/17/24 01/17/24 Range/Units 06:24 06:24 WBC 20.6 H (3.8-10.6) k/uL Hgb 12.9 L (13.0-17.5) gm/dL Neutrophils # 17.7 H (1.3-7.7) k/uL Monocytes # 1.1 H (0-1.0) k/uL Glucose 116 H (74-99) mg/dL
[2024-01-17] MEDS: CYCLOBENZAPRINE 5 MG TAB PO PRN (17:19)
[2024-01-17] MEDS: DEXAMETHASONE SOD PHOSPHATE 4 MG/ML 1 ML VIAL IVP SCH (18:50)
[2024-01-17 21:26] VITALS: TEMP 97.9
[2024-01-18 02:28] VITALS: PULSE 57
[2024-01-18 07:21] VITALS: BP 156/93; RESP 18
[2024-01-18] MEDS: MAGNESIUM HYDROXIDE 2,400 MG/30 ML CUP PO PRN (08:10)
[2024-01-18 08:26] LABS: HCT 43.9 % (39.6-50.0); HGB 14.2 g/dL (13.0-17.0); MCHC 32.3 g/dL (32.0-37.0); MCV 86.6 FL (80.0-97.0); Mean Platelet Volume 9.6 FL (9.5-12.2); NRBC Per 100 WBC 0 X 10*3/uL (0.00-0.01); Platelet Count 289 X 10*3/uL (140-440); RBC 5.07 X 10*6/uL (4.40-5.60); RDW 13.3 % (11.5-14.5); WBC 16.87 X 10*3/uL (4.50-10.00)
[2024-01-18 08:37] LABS: BUN/Creat Ratio 21.14 Ratio (12.00-20.00); Blood Urea Nitrogen 14.8 mg/dL (9.0-27.0); Glucose 92 mg/dL (70-110)
[2024-01-18 08:38] LABS: Carbon Dioxide 25.6 mmol/L (21.6-31.8); Chloride 103 mmol/L (96-109); Potassium 4.1 mmol/L (3.5-5.5); Sodium 141 mmol/L (135-145)
--- NOTE | 2024-01-18 10:47 | P.PN ---
Subjective Progress Note Date: 01/18/24 Principal diagnosis: 1. Ataxia; bilateral lower extremity radiculopathy Patient was seen at bedside this morning sitting up in the semirecumbent position with hard cervical collar, drain and dressing in place over anterior cervical spine. Patient says she has been up walking daily since surgery. Patient says he has urinated several times since surgery yesterday. Patient says he has not had a bowel movement yet, however, patient says he has been passing gas. Patient says he is complaining of a little bit of swelling in the neck, however he was aware of this. Patient says he is looking forward to going home later today. Patient denies any issues at this time. Patient does notice a change and has not had any numbness or tingling in his feet since surgery. Patient denies chest pain, fever, shortness of breath, nausea, vomiting, change in vision, loss of bowel/bladder control. Objective - Vital Signs Vital signs: Vital Signs Temp 97.9 F 01/18/24 01:31 Pulse 57 L 01/18/24 01:31 Resp 18 01/18/24 07:19 BP 156/93 01/18/24 07:19 Pulse Ox 100 01/18/24 07:19 FiO2 Intake & Output 01/17/24 01/18/24 01/18/24 18:59 06:59 18:59 Output Total 10 Balance -10 Output: Drainage 10 Right 10 Other: # Voids 3 1 - Exam Inspection: Hard cervical collar is in place. Dressing and drain are present o robert the anterior cervical spine. Drain removed at bedside this morning. New dressing placed over incision. Incision appears to be healing well at this time. Negative for any active drainage. Sensation: Equal, symmetric, bilaterally intact throughout the upper and lower extremities on exam. Palpation: Some generalized tenderness to palpation near the incision over the anterior cervical spine. Nontender to palpation throughout rest of exam. Range of motion: Full range of motion throughout bilateral upper and lower extremities on exam Motor: 5/5 in all major motor groups in bilateral upper and lower extremities on exam Special tests: Negative Homans bilaterally. Negative Janie bilaterally. Negative clonus bilaterally. Neurovascular: Radial pulses intact, 2+ bilaterally. Cap refill under 3 seconds in digits of upper extremities. - Labs CBC & Chem 7: 01/18/24 06:27 01/18/24 06:27 Labs: Abnormal Lab Results - Last 24 Hours (Table) 01/18/24 01/18/24 Range/Units 06:27 06:27 WBC 16.87 H (4.50-10.00) X 10*3/uL Anion Gap 12.40 H (4.00-12.00) mmol/L BUN/Creatinine Ratio 21.14 H (12.00-20.00) Ratio Assessment and Plan Assessment: 1. 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 Ataxia; bilateral lower extremity radiculopathy; C5 to C6 and C6 to C7 moderate to severe central canal and neuroforaminal stenosis - surgery was performed 01/16/2024 to C7 ACDF. Patient stable at bedside this morning with hard cervical collar in place and dressing and drain. drain removed and dressing changed. Patient may weight-bear as tolerated with hard c-collar in place at all times. Pain medication as needed. T-spine MRI this afternoon. Stable from ortho standpoint for discharge. Follow up in office with Dr. Baker in 2 weeks. Orthopedics will be available as needed to see patient. 2. Appreciate medical and neurology management 3. Pain management - [place]; Flexeril; gabapentin 4. DVT prophylaxis - mechanical 5. GI prophylaxis - senna 6. PT/OT - weightbearing as tolerated with walker as needed and hard cervical collar in place at all times and assistance 7. Encourage incentive spirometer use Time with Patient: Less than 30
--- NOTE | 2024-01-18 12:34 | P.DS ---
Providers Date of admission: 01/15/24 09:55 Expected date of discharge: 01/18/24 Attending physician: Risa Pandya MD Consults: 01/13/24 03:09 Consult Physician Routine Consulting Provider: Sandip Baker Consult Reason/Comments: BL LE weakness Do you want consulting provider notified?: Yes Consult Physician Routine Consulting Provider: Gisela Man Consult Reason/Comments: ataxia Do you want consulting provider notified?: Yes Primary care physician: Cris Eng Hospital Course: Discharge Diagnosis: Cervical myelopathy due to cervical disc herniation at C6-7 with cord compression Status post ACDF C6-7 Leukocytosis, reactive to steroids Hypothyroidism Anxiety, situational Hospital Course: Patient is a 43-year-old male with osteoarthritis and hypothyroidism who presented to the emergency department with complaints of progressive lower extremity weakness with significant back pain. On arrival to the ER his vital signs are within normal limits. Initial laboratory analysis was unremarkable. Patient underwent CT head and cervical spine which demonstrated no acute fracture or dislocation with vertebral bodies and disc heights maintained. He underwent lumbar spine CT which showed an L3-4 disc bulge with mild effacement of the anterior thecal sac, L4-5 broad-based disc protrusion effacing the anterior sac. He was admitted for possible spinal cord compression. He was seen by orthopedic surgery and neurology. He underwent cervical and lumbar spine MRIs which were significant for C5-6 and C6-7 disc herniations with significant cord deformity associated with the C6-7 disc herniation. He underwent ACDF C6-7 on 01/16/24. He continues to do well and progress. He was determined stable for discharge home. Of note his TSH was 0.305 and therefore his [place] Thyroid was decreased to 98 mg daily Follow-up: Dr. Baker in 2 weeks. Hard cervical collar while up and walking. Repeat CBC in [address] Eng in 2-3 days Patient seen and examined at bedside. Doing well. Pain is well-controlled. Having bowel movements. Excited to go home. Vital signs reviewed and stable. General: Nontoxic, no distress, appears at stated age Cardiovascular: S1S2 reg, no murmur, positive posterior tibial pulse bilateral, Lungs: CTA bilateral, no rhonchi, no rales, no accessory muscle use Abdominal: Soft, nontender to palpation, no guarding, no appreciable organomegaly Ext: No gross muscle atrophy, no edema b/l lower extremities, no contractures, hard cervical collar in place Neuro: CN II-XI grossly intact, no focal neuro deficits Psych: Alert, oriented, appropriate affect A total of 37 minutes of time were spent preparing this complex discharge summary. Patient was discharged on 01/18/2024. This dictation was prepared using [employer] voice recognition software. Though every attempt is made to correct errors during dictation some may still exist. Patient Condition at Discharge: Fair Plan - Discharge Summary Discharge Rx Participant: Yes New Discharge Prescriptions: New Cyclobenzaprine [Flexeril] 5 mg PO TID #21 tablet Sennosides/Docusate Sodium [Senna Plus 8.6-50 mg Softgel] 1 each PO DAILY #20 capsule HYDROcodone/APAP 10-325MG [[place] 10-325] 1 tab PO Q6HR PRN #28 tab PRN Reason: Pain cefaDROXiL [Duricef] 500 mg PO Q12HR 5 Days #10 cap Gabapentin [Neurontin] 100 mg PO TID 3 Days #30 cap Thyroid,Pork [[place] Thyroid] 90 mg PO DAILY #30 tablet Continue ALPRAZolam [Xanax] 0.5 mg PO DAILY PRN PRN Reason: Anxiety Levothyroxine Sodium [Synthroid] 25 mcg PO DAILY Discontinued Thyroid,Pork [[place] Thyroid] 120 mg PO DAILY Meloxicam [Mobic] 15 mg PO DAILY Discharge Medication List ALPRAZolam [Xanax] 0.5 mg PO DAILY PRN 09/20/19 [History] Levothyroxine Sodium [Synthroid] 25 mcg PO DAILY 01/13/24 [History] Cyclobenzaprine [Flexeril] 5 mg PO TID #21 tablet 01/18/24 [Rx] Gabapentin [Neurontin] 100 mg PO TID 3 Days #30 cap 01/18/24 [Rx] HYDROcodone/APAP 10-325MG [[place] 10-325] 1 tab PO Q6HR PRN #28 tab 01/18/24 [Rx] Sennosides/Docusate Sodium [Senna Plus 8.6-50 mg Softgel] 1 each PO DAILY #20 capsule 01/18/24 [Rx] Thyroid,Pork [[place] Thyroid] 90 mg PO DAILY #30 tablet 01/18/24 [Rx] cefaDROXiL [Duricef] 500 mg PO Q12HR 5 Days #10 cap 01/18/24 [Rx] Follow up Appointment(s)/Referral(s): Cris Eng MD [Primary Care Provider] - 1-2 days Sandip Baker DO [Doctor of Osteopathic Medicine] - 2 Weeks Ambulatory/Diagnostic Orders: Complete Blood Count w/diff [LAB.AMB] Time Frame: 3 Days, Location: None Selected Activity/Diet/Wound Care/Special Instructions: Medicine Discharge Instructions: Repeat CBC in 3 days with results to Dr. Cathy Hobbs Spine Discharge and Recovery Instructions Date of Surgery: 01/16/2024 Diagnosis: 1. CERVICAL SPONDYLOTIC MYELOPATHY 2. C6-7 LARGE HNP WITH SEVERE STENOSIS AND MYELOMALACIA 3. MYELOPATHIC GAIT 4. UE AND LE WEAKNESS Procedure: C6 to C7 ACDF Medications: See medication list All medication refills should be obtained through your primary care doctor or your clinic spine surgeon. Please discuss prescription refills at your follow up appointment. Do not call the hospital for medication refills. Dressing: Leave your dressing in place for a total of 5 days post operatively. Then you may remove your dressing and leave open to air. Keep the area clean and if not able to keep area clean, then cover with sterile gauze and tape. Showering: You may shower 3 days after your procedure allowing soap and water to run over incision. Do not scrub. Do not soak. Blot dry. Follow up: Please confirm a follow up appointment with your surgeon 3 weeks post operatively. Please make an appointment to follow up with your PCP in 1-2 weeks after surgery for evaluation 3 phase, 3-week plan POST OP WEEKS 1-3 1. Lifting/carrying/pushing/pulling limited to less than 5 pounds. 2. Do not sit for longer than 15 minutes at one time. Get up and walk around. Prolonged sitting is NOT advised. If you lay down, see if you can tolerate laying down on you front (belly side) 3. Walk for periods of 15 minutes = 1 mile but no longer; do it multiple times times each day. 4. Ice your low back after activity. POST OP WEEKS 3-6 1. Lifting limited to less than 20 pounds. 2. Do not sit for longer than 30 minutes at a time. Frequently change positions. Use a sit-to stand workstation or take frequent breaks from sitting if you have returned to work. 3. Walk for 30 minutes each day. If possible, do these three or more times a day POST OP WEEKS 6+ At your 6-week appointment we will give you a physical therapy referral to focus on a core stabilization and strengthening program. You should also work on leg & buttock strengthening, hamstring & quadriceps stretching, and continue a low impact aerobic activity program such as swimming, walking, or riding a stationary bicycle. During the initial 6 weeks after your surgery, you are at the highest risk of re-injuring your spine. You should generally avoid BLTs (bending, lifting and twisting combination motions) and follow the above guidelines to reduce the chance of reinjury. You can anticipate post op appointments in our office at approximately 3 weeks and 6 weeks after your surgery. INCISION CARE: If your incision is not draining you do NOT need to cover it with a dressing. Keep your incision clean, dry and intact. In most cases, we apply skin glue, jf or sutures to the incision at the time of surgery. This will be like a crust or have the appearance of a scab and will fall off in time on its own. The stitches or jf need to be removed at 3 weeks post op appointment. You may begin to shower 3 days after surgery (this allows the glue to wheat well). However, please avoid scrubbing the incision site or peeling off any of the skin glue. This will ensure optimal healing of your incision. Also, during this time avoid soaking the incision area in water - this includes swimming pools, hot tubs or baths. No ointments, lotions or oils on the incision until your surgeon allows. Leave jf, sutures or glue in place. Neurological dysfunction that comes on suddenly can also be a sign of a stroke. Below some common symptoms of a stroke are listed: B - balance difficulty such as sudden onset walking or leaning to one side - NEW E - eye problem such as sudden double vision or trouble seeing on one side - NEW F - Facial weakness or numbness on one side - NEW A - Arm or leg weakness or numbness on one side - NEW S - Slurred speech or difficulty with word finding - NEW T - Time is BRAIN! Call 911 as soon as you recognize these symptoms Diet: Consume a regular diet rich in vegetables and lean protein such as chicken or fish. You should consume in a ratio of approximately 20% fats|40% carbohydrates|40%protein. Vegetables, sweet potatoes, brown rice or quinoa are examples of good carbohydrates. Chips, white bread, cookies and sweets/sugar are examples of bad carbohydrates. Limit your bad carbs, go wild with good carbs. "Life's Simple 7" Guidelines as per [place] [employer] These will help you reclaim your life after surgery and spring repairer helper hand in your recovery, keeping in mind your restrictions. (1) Get Active. Physical activity can help people lose weight, control high blood pressure and cholesterol, feel emotionally better, and sleep better. (2) Control Cholesterol. Avoid a diet high in saturated fat, trans fat, & cholesterol. Limit whole milk & cream, ice cream, butter, egg yolks, processed meats (like sausage and hot dogs), and fatty meats. Choose healthy foods that are low in saturated fat, trans fat and cholesterol which include: Fruits and vegetables, fiber rich grain products (like whole grain pasta and brown rice), lean meat such as chicken, fish, nuts, seeds, and legumes. (3) Eat Better. Eat small portions. Shop at the grocery with a list and do not stray from it. Tips for a healthy diet include: Limit sodium intake to less than 1500mg daily, avoid prepackaged, processed, and fast foods, choose a diet rich in fruits, vegetables, and whole grain, high fiber foods, and limit saturated & cholesterol in your diet. (4) Manage Blood Pressure. If you have high blood pressure, you should have a cuff at home so that you can check your blood pressure regularly. Be sure you have a good cuff. An arm one is generally better than a wrist one. Bring the cuff to a doctor's appointment to validate that the measurements that your cuff are taking are accurate. Take your blood pressure twice daily when you are sitting down and relaxing. Record the numbers in a log and bring this log with you to your doctors' appointments. (5) Lose Weight if your BMI is above 25. A healthy BMI is between 19-25. To ca lculate Your BMI, you may use a Standard BMI Calculator on the NIH BMI website: <www.nhlbi.nih.gov/guidelines/obesity/BMI/bmicalc.htm>. Weigh oneself daily. If you are overweight, set a goal to lose weight. A pound a week loss if needed is a good target. (6) Reduce Blood Sugar. Limit foods and liquids with "added sugars." (Added sugars include sucrose, fructose, glucose, maltose, dextrose, high fructose corn syrup, corn syrup, concentrated fruit juice and honey). (7) Stop Smoking. If you smoke, quitting smoking is one of the best things that you can do for your health. Smoking increases your risk of heart attack, stroke, and peripheral vascular disease, which is a build-up of plaque in your arteries. Please discard all the cigarettes and lighters in your house. Have a plan for what you will do when you have the urge to smoke. Direct and second- hand smoke shortens your life as well as the lives of your family, friends and others around you. For your health and the health of those around you, please consider quitting! Proper Bending Body Mechanics: Maintain a wide stance with one foot slightly in front of the other. Keep your back straight. Bend utilizing the strength in your hips and knees. Do not bend at the waist. Maintain the lifted object at your waist-level close to your body. Avoid lifting weight that causes immediately pain or pain anywhere in the body afterwards. Smoking/Nicotine If there was ever one thing that you could do to increase your overall health, decrease your risk of cardiovascular problems by about 39% the second you make the choice, it is to STOP SMOKING. Your body's most instant gratification is the second you stop smoking. We have all heard the studies, read the articles but it is true, smoking is extremely bad for your overall health, and moreover it is detrimental to your bone health. Nicotine, IN ANY FORM, kills bone cells, prevents your body from healing fractures, and significantly prolongs healing after surgery. In spine surgery specifically, it increases your risk of not healing your bones to create a fusion and increases your risk of having a revision surgery due to this up to 60%. I know it is hard. I know it feels impossible. But there are ways. Take control of your life. We are here to help you through it. And when you are ready, ask us and we can direct you to help if you desire. Use the START Plan to Quit Smoking (please visit the Helpguide.org website listed below for more information): S = Set a quit date. Choose a date within the next 2 weeks, so you have enough time to prepare without losing your motivation to quit. If you mainly smoke at work, quit on the weekend, so you have a few days to adjust to the change. T = Tell family, friends, and co-workers that you plan to quit. Let your friends and family in on your plan to quit smoking and tell them you need their support and encouragement to stop. Look for a quit leann who wants to stop smoking as well. You can help each other get through the rough times. A = Anticipate and plan for the challenges you'll face while quitting. Most people who begin smoking again do so within the first 3 months. You can help yourself make it through by preparing ahead for common challenges, such as nicotine withdrawal and cigarette cravings. R = Remove cigarettes and other tobacco products from your home, car, and work. Throw away all your cigarettes (no emergency pack!), lighters, ashtrays, and matches. Wash your clothes and freshen up anything that smells like smoke. Shampoo your car, clean your drapes and carpet, and steam your furniture. T = Talk to your doctor about getting help to quit. Your doctor can prescribe medication to help with withdrawal and suggest other alternatives. If you can't see a doctor, you can get many products over the counter at your local pharmacy or grocery store, including the nicotine patch, nicotine lozenges, and nicotine gum. Resources for Quitting Smoking: <https://www.[place].gov/documents/[facility]/Quit_Tobacco_Resources_for_patients_313 480_7.pdf> Supplementation: Take recommended dosages of Vitamin D and Calcium to help fortify your bones and help them to heal. See your health maintenance packet for dosages and recommended levels. DVT/VTE prophylaxis: You will be given compression stockings from the hospital. Wear these daily for the first two weeks after surgery. You may take them off at night. You may be prescribed a medication to help thin your blood. Take this as directed. If you are not prescribed this medication, early and frequent ambulation has been shown to be the best prophylaxis to deep vein thrombosis and sequelae related to this event. Discharge Disposition: HOME SELF-CARE
--- NOTE | 2024-01-18 17:08 | MR ---
EXAMINATION TYPE: MR thoracic spine wo con DATE OF EXAM: 01/18/2024 COMPARISON: None HISTORY: Myelopathy, ataxia. CONTRAST: Performed utilizing 0 mL intravenous Gadobutrol gadolinium contrast. TECHNIQUE: Multiplanar, multiecho imaging on a 3.0 Gladys magnet is performed through the thoracic spi ne. Spinal cord maintains normal signal through its visualized course. No suspicious signal change within the spinal cord. No expansion is evident. Syrinx is not identified. Vertebral body alignment is normal. Vertebral body heights are preserved. Disc heights are preserved. Disc hydration levels are preserved. T10-11: There is a tiny right paracentral disc herniation with mild anterior thecal sac compression. No cord contact or spinal canal stenosis is present. Neural foramen are patent. No spinal canal stenosis is evident. Surgical changes. Be present C6-7 level. Some susceptibility art ifact is present limiting evaluation. IMPRESSION: 1. No suspicious cord abnormality thoracic spine. 2. Tiny right paracentral disc herniation T10-T11 without cord contact or stenosis.
== END 2024-01-18 14:03 | disposition home or self-care (01) | DRG 472 ==
LOC: EC 18:39 → 6NMEDSUR 01-13 03:10 → OBSVTOIN 01-15 09:55 → 4SSUR 01-16 10:04
PROVIDERS: ADMIT Internal Medicine; ATTEND Internal Medicine
PROC: 0RT30ZZ Resection of Cervical Vertebral Disc, Open Approach (ICD-10-PCS; 2024-01-16)
PROC: 01N10ZZ Release Cervical Nerve, Open Approach (ICD-10-PCS; 2024-01-16)
PROC: 00NW0ZZ Release Cervical Spinal Cord, Open Approach (ICD-10-PCS; 2024-01-16)
PROC: 4A11X4G Monitoring of Peripheral Nervous Electrical Activity, Intraoperative, External Approach (ICD-10-PCS; 2024-01-16)
PROC: 0RG20A0 Fusion of 2 or more Cervical Vertebral Joints with Interbody Fusion Device, Anterior Approach, Anterior Column, Open Approach (ICD-10-PCS; principal; 2024-01-16 08:00)
DX: M50.023 Cervical disc disorder at C6-C7 level with myelopathy (principal); G95.89 Other specified diseases of spinal cord; M47.12 Other spondylosis with myelopathy, cervical region; F41.9 Anxiety disorder, unspecified; G89.29 Other chronic pain; F32.A Depression, unspecified; E03.9 Hypothyroidism, unspecified; Z79.890 Hormone replacement therapy; Z96.652 Presence of left artificial knee joint; M50.123 Cervical disc disorder at C6-C7 level with radiculopathy; M19.90 Unspecified osteoarthritis, unspecified site; M48.07 Spinal stenosis, lumbosacral region; D72.829 Elevated white blood cell count, unspecified; T38.0X5A Adverse effect of glucocorticoids and synthetic analogues, initial encounter; X58.XXXA Exposure to other specified factors, initial encounter; M48.02 Spinal stenosis, cervical region; M51.16 Intervertebral disc disorders with radiculopathy, lumbar region; M79.2 Neuralgia and neuritis, unspecified; R27.0 Ataxia, unspecified; F41.8 Other specified anxiety disorders; Z79.1 Long term (current) use of non-steroidal anti-inflammatories (NSAID); Z79.899 Other long term (current) drug therapy
CPT/HCPCS: 36415; 70450; 72040; 72125; 72131; 72141; 72146; 72158; 80048; 80053; 82550; 82607; 82747; 83605; 83735; 84100; 84425; 84443; 84484; 85025; 85027; 85610; 85652; 85730; 86140; 86618; 94760; 96360; 96361; 99285